=== PATIENT | male | born 1955 | race Caucasian/White ===

== ENCOUNTER 2022-02-03 00:40 | Day surgery (SDC) | payer MEDICARE, SELFPAY ==
[2022-01-29 12:15] VITALS: BMI 22.9
--- NOTE | 2022-02-02 11:02 | P.PNAN_ITS ---
Anes - Initial Pre Proc Eval Procedure: Operation Date: 02/03/22 12:15 Proposed Procedures p Screening Colonoscopy - Sheldon Mead MD Date/Time: 02/02/22 11:02 Surgeon: Sheldon Mead MD Pre Op Diagnosis: neoplasm screening Patient Data Age: 66 Gender: M Height: 1.78 m Weight: 72.5 kg Allergies Allergy/AdvReac Type Severity Reaction Status Date / Time DICLOFENAC SODIUM Allergy Severe FACIAL Uncoded 02/03/22 11:07 SWELLING Home Medications Medication Instructions Recorded Confirmed Type Adults Multivitamin 1 tab-cap PO DAILY 01/29/22 01/29/22 History aspirin [Adult Aspirin Regimen] 81 mg PO DAILY 01/29/22 01/29/22 History atorvastatin 40 mg PO DAILY 01/29/22 01/29/22 History carvedilol 6.25 mg PO DAILY 01/29/22 01/29/22 History clopidogrel 75 mg PO DAILY 01/29/22 01/29/22 History indomethacin 50 mg PO Q48H 01/29/22 01/29/22 History losartan 25 mg PO DAILY 01/29/22 01/29/22 History melatonin 10 mg PO HS 01/29/22 01/29/22 History nitroglycerin 0.4 mg SUBLINGUAL PRN 01/29/22 01/29/22 History tramadol 50 mg PO BID PRN 01/29/22 02/03/22 History Patient hx anesthesia problems: none Family hx anesthesia problems: none Results Review: All pre-operative results and documents have been reviewed as part of the pre-operative evaluation. [facility] Past Medical History Medical History (Updated 02/02/22 @ 11:02 by Kodi Orr DO) Anemia History of heart attack 2018 Hyperlipidemia Hypertension Family History Family History (Updated 06/21/18 @ 08:43 by DOCTOR UNKNOWN) Father Cerebrovascular accident Acute myocardial infarction Family history of heart disease in male family member before age 55 Mother Carcinoma of colon Family history of heart disease in male family member before age 55 Acute myocardial infarction Grandparent Cerebrovascular accident Family history of heart disease in male family member before age 55 Sibling Malignant neoplasm of prostate Other Family history of coronary artery disease Social History Social History Smoking status: Never smoker Second hand tobacco smoke exposure: No Alcohol intake: current Drinks per week: 2 Alcohol use details: DRINKS Substance use: never Substance use type: does not use Living arrangements: with family Spiritual care concerns: No Anes - Eval Final PreProcedure Day of Procedure 02/02/22 11:02 Patient weight: normal Heart: regular rate and rhythm Lungs: clear to auscultation and normal air movement Airway: Mallampati scale class II Neurological: alert and oriented Last oral intake: >/= 8 hours ASA classification: III Emergent: no Anesthetic plan: proceed Anesthesia type and monitoring: general GIVS and standard monitoring Results Review: All pre-operative results and documents have been reviewed as part of the pre-operative evaluation. Informed Consent: The patient's anesthetic plan and its attendant risks and benefits were discussed with the patient/family/POA. Questions were solicited and answers provided to the satisfaction of the patient/family/POA.
[2022-02-03 11:09] VITALS: BP 101/74; PULSE 91; RESP 16; TEMP 36.3; O2SAT 100
[2022-02-03] MEDS: LACTATED RINGERS 1,000 ML 150 ML IV CONT (11:13)
--- NOTE | 2022-02-03 11:26 | PM.HPGS ---
History of Present Illness History of Present Illness Consent: Risks, benefits, and alternatives have been discussed and questions answered. Patient agrees to proceed with procedure. Chief complaint: neoplasm screening Narrative: Addison Nina is a 66 year old male Here for colon cancer screening. This is his 1st colonoscopy. Review of Systems Review of Systems: All systems reviewed & are unremarkable except as noted in HPI and below PMFSH Past Medical History Medical History Anemia History of heart attack 2018 Hyperlipidemia Hypertension Family History Family History Father Cerebrovascular accident Acute myocardial infarction Family history of heart disease in male family member before age 55 Mother Carcinoma of colon Family history of heart disease in male family member before age 55 Acute myocardial infarction Grandparent Cerebrovascular accident Family history of heart disease in male family member before age 55 Sibling Malignant neoplasm of prostate Other Family history of coronary artery disease Social History Social History Smoking status: Never smoker Second hand tobacco smoke exposure: No Alcohol intake: current Drinks per week: 2 Alcohol use details: DRINKS Substance use: never Substance use type: does not use Living arrangements: with family Spiritual care concerns: No Meds Home Medications and Allergies Home Medications Medication Instructions Recorded Confirmed Type Adults Multivitamin 1 tab-cap PO DAILY 01/29/22 01/29/22 History aspirin [Adult Aspirin Regimen] 81 mg PO DAILY 01/29/22 01/29/22 History atorvastatin 40 mg PO DAILY 01/29/22 01/29/22 History carvedilol 6.25 mg PO DAILY 01/29/22 01/29/22 History clopidogrel 75 mg PO DAILY 01/29/22 01/29/22 History indomethacin 50 mg PO Q48H 01/29/22 01/29/22 History losartan 25 mg PO DAILY 01/29/22 01/29/22 History melatonin 10 mg PO HS 01/29/22 01/29/22 History nitroglycerin 0.4 mg SUBLINGUAL PRN 01/29/22 01/29/22 History tramadol 50 mg PO BID PRN 01/29/22 02/03/22 History Allergies Allergy/AdvReac Type Severity Reaction Status Date / Time DICLOFENAC SODIUM Allergy Severe FACIAL Uncoded 02/03/22 11:07 SWELLING Vital Signs Vital Signs - 24 hr 02/03/22 11:09 Temperature 36.3 C L Pulse Rate 91 Respiratory Rate 16 Blood Pressure 101/74 Pulse Oximetry 100 Exam Resp: Auscultation: clear to auscultation bilaterally Cardio: Rate: regular rate Rhythm: regular rhythm GI: GI Palp: Yes Soft to palpation and No Tenderness to palpation present (GI) Assessment and Plan Assessment and plan (1) Colon cancer screening: Code(s): Z12.11 - Encounter for screening for malignant neoplasm of colon Status: Acute Assessment and Plan: Colonoscopy with possible biopsy or polypectomy or cautery or injection of substances.1947
[2022-02-03 11:49] VITALS: BP 87/57; PULSE 66; RESP 15; O2SAT 100
[2022-02-03 11:59] VITALS: BP 94/64; PULSE 67; RESP 20; O2SAT 100
[2022-02-03 12:09] VITALS: BP 97/61; PULSE 65; RESP 14; O2SAT 100
== END 2022-02-03 12:26 | disposition home or self-care (01) ==
PROVIDERS: PCP Physician Assistant; Visit Provider Internal Medicine Gastroenterology
PROC: 0DJD8ZZ Inspection of Lower Intestinal Tract, Via Natural or Artificial Opening Endoscopic (ICD-10-PCS; CPT 45378; principal; 2022-02-03 12:15)
DX: Z12.11 Encounter for screening for malignant neoplasm of colon (principal); K57.30 Diverticulosis of large intestine without perforation or abscess without bleeding; K64.8 Other hemorrhoids; I10 Essential (primary) hypertension; I25.2 Old myocardial infarction; E78.5 Hyperlipidemia, unspecified
CPT/HCPCS: G0105; J2704; J7120

== ENCOUNTER 2022-02-16 12:34 | Outpatient (CLI) | payer MEDICARE, SELFPAY ==
--- NOTE | ~2022-02-16 | US_ITS ---
EXAMINATION: US renal BI DATE: 02/16/2022 13:07 INDICATION: Stage III chronic kidney disease TECHNIQUE: Multiple ultrasound grayscale images of the kidneys were obtained. COMPARISON: None. FINDINGS: The right kidney measures 9.4 x 5.1 x 5.0 cm. The left kidney measures 8.5 x 4.0 x 4.5 cm. There is c ortical thinning at both kidneys with normal echogenicity. There is no hydronephrosis in either kidne y. No stones identified. The bladder is normal. Mild prostatomegaly measuring 4.1 x 3.1 cm with cent ral echogenic calcification. IMPRESSION: 1. Diffuse mild bilateral renal cortical atrophy. No hydronephrosis. 2. Prostatomegaly. Reviewed, dictated and finalized at location B.
== END 2022-02-16 12:35 | disposition home or self-care (01) ==
PROVIDERS: PCP Physician Assistant; Visit Provider Internal Medicine Nephrology
DX: N18.31 Chronic kidney disease, stage 3a (principal); N40.0 Benign prostatic hyperplasia without lower urinary tract symptoms
CPT/HCPCS: 76775

== ENCOUNTER 2023-03-06 12:05 | Inpatient (IN) | payer MEDICARE, SELFPAY ==
[2023-03-06] VITALS (25 sets, daily range): BP systolic 90–105; BP diastolic 57–78; PULSE 67–88; RESP 12–20; TEMP 35.6–36.6; O2SAT 93–100; BMI 23.1
--- NOTE | ~2023-03-06 | CT_ITS ---
EXAMINATION: CT brain wo con DATE: 03/06/2023 20:45 INDICATION: confusion . TECHNIQUE: Computed tomography (CT) of the head was performed without intravenous contrast. The mA wa s adjusted according to patient size. Iterative reconstruction technique was employed. The dose-lengt h product was 681.00 mGy-cm. COMPARISON: 06/04/2018, report only, images could not be retrieved from the logger all round. FINDINGS: No acute intracranial hemorrhage or extra-axial fluid collection. No hydrocephalus, mass, or herniation. No acute ischemic infarct. Unremarkable dural venous sinus attenuation. No acute osseous abnormality. Near complete opacification of the right frontal and right anterior and middle ethmoid air cells, wit h air-fluid levels. Complete opacification of the right maxillary sinus with surrounding sclerosis. T he remaining aerated spaces are clear. Mild atrophy and chronic white matter change. Atherosclerotic intracranial calcification. Left lens r eplacement. IMPRESSION: No acute intracranial process. Acute on chronic sinusitis. Reviewed, dictated and finalized at location K.
--- NOTE | ~2023-03-06 | US_ITS ---
Renal-Bladder ultrasound Clinical History: Acute kidney insufficiency Technique: Real-time sonographic imaging of the kidneys and urinary bladder was performed. Findings: The right kidney measures 10.1 cm in length and the left kidney measures 9.2 cm. There is n o hydronephrosis or renal calculus identified. Renal cortex is hyperechoic and thinned. No renal mass lesion is identified. The urinary bladder is partially distended at the time of this exam. No intraluminal echoes are ident ified. No abnormal wall thickening is seen. Impression: Findings consistent with chronic medical renal disease. No hydronephrosis. Reviewed, dictated and finalized at location . Impression: Findings consistent with chronic medical renal disease. No hydronephrosis.
--- NOTE | ~2023-03-06 | US_ITS ---
EXAMINATION: US arterial ankle brachial ind DATE: 03/11/2023 19:06 INDICATION: Decreased pulses TECHNIQUE: Segmental pressures and plethysmographic and Doppler waveforms of the brachial and lower e xtremity arteries were obtained. COMPARISON: None. FINDINGS: Right and left brachial artery pressures of 87 mm Hg and 83 mm Hg, respectively, are concordant (norm al difference <= 30 mmHg). The right ankle-brachial index (ELLEN) is unable to be obtained due to inability to occlude the vessels at the right ankle (normal >= 0.9-1.0). The right great toe-brachial index (TBI) is 0.98 (normal >= 0.65). Arterial Doppler waveforms are biphasic with brisk systolic upstrokes at both right posterior tibial and dorsalis pedis arteries. The left ELLEN is 1.39. The left TBI is 1.48. Arterial Doppler waveforms are biphasic with brisk systol ic upstrokes at both left posterior tibial and dorsalis pedis arteries. IMPRESSION: 1. No significant arterial occlusive disease with normal bilateral ABIs and TBIs Reviewed, dictated and finalized at location A. IMPRESSION: 1. No significant arterial occlusive disease with normal bilateral ABIs and TBI s
--- NOTE | ~2023-03-06 | XR_ITS ---
Portable chest x-ray Comparison: 03/06/2023 Clinical History: Line placement Findings: Right-sided central venous line is in satisfactory position. Lungs are clear. No consolida tion, effusion, or pneumothorax. Cardiomediastinal silhouette is stable. Stable chronic left-sided r ib fracture deformities. Impression: Right-sided central venous line in satisfactory position. Clear lungs. Reviewed, dictated and finalized at location . Impression: Right-sided central venous line in satisfactory position. Clear lungs.
--- NOTE | ~2023-03-06 | XR_ITS ---
EXAMINATION: XR chest 1V portable 03/06/2023 12:50 INDICATION: Weakness. Hypertension. PROCEDURE: AP portable chest COMPARISON: No prior studies for comparison. FINDINGS: The lungs are clear. The cardiomediastinal silhouette is within normal limits. There are no pleural effusions. There is no pneumothorax suspected. There are multiple healed left rib fractu res. There is an age-indeterminate left sixth rib fracture. IMPRESSION: 1: NO ACUTE CARDIOPULMONARY DISEASE. 2: Age-indeterminate left sixth rib fracture. Reviewed, dictated and finalized at location A.
--- NOTE | ~2023-03-06 | XR_ITS ---
Portable chest x-ray Comparison: 03/08/2023 Clinical History: CHF Findings: Right IJ line is unchanged. Lungs are clear, without focal consolidation or pleural effusi on. Cardiomediastinal silhouette is stable. Bones and soft tissues are unremarkable. Impression: Clear lungs. Stable support line. Reviewed, dictated and finalized at location . Impression: Clear lungs. Stable support line.
--- NOTE | 2023-03-06 12:35 | ECG_ITS ---
Measurements Intervals [place] Rate: 71 P: 34 ME: 218 QRS: -9 QRSD: 140 T: -17 QT: 404 QTc: 441 Interpretive Statements SINUS RHYTHM WITH FIRST DEGREE AV BLOCK ATRIAL PREMATURE COMPLEX INTRAVENTRICULAR CONDUCTION DELAY BORDERLINE T WAVE ABNORMALITY- INFERIOR LEADS BORDERLINE ECG NO PREVIOUS ECG AVAILABLE FOR COMPARISON Electronically Signed On 03-06-2023 13:44:17 CDT by Chris Beebe D.O.
--- NOTE | 2023-03-06 12:35 | ED.GENADULT ---
HPI - General Adult General Chief complaint: Unspecified Stated complaint: vomiting/dehydration Time Seen by Provider: 03/06/23 12:29 Source: patient, family and RN notes reviewed Mode of arrival: ambulatory Limitations: altered mental status History of Present Illness HPI narrative: This is a 67 year old male with history of gout, hyperlipidemia, hypertension, chronic kidney disease who presents for evaluation of dehydration. His is assisting with history because she states patient is confused. 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 His states that his asset management analyst has taken him off his gout medication and started Azathropine to prepare for an infusion. Over the past 2 weeks, patient has been in bed mostly due to pain. She reports patient is not eating or drinking much. She reports decrease urination and she thinks he is dehydrated. Last night he was having nausea and hiccups. Today she tried to get him to drink water today but he had episode of emesis so they came to ER. He reports having fever 102 f 2 days ago but it has resolved. He denies abdominal pain, chest pain, sob, cough. He reports mild sore throat. Related Data Home Medications Medication Instructions Recorded Confirmed Adults Multivitamin 1 tab-cap PO DAILY 01/29/22 03/06/23 aspirin 81 mg tablet,delayed 81 mg PO DAILY 01/29/22 03/06/23 release (Adult Aspirin Regimen) atorvastatin 40 mg tablet 40 mg PO DAILY 01/29/22 03/06/23 clopidogrel 75 mg tablet 75 mg PO DAILY 01/29/22 03/06/23 indomethacin 50 mg capsule 25 mg PO Q48H 01/29/22 03/06/23 nitroglycerin 0.4 mg sublingual 0.4 mg sublingual PRN PRN Chest 01/29/22 03/06/23 tablet Pain tramadol 50 mg tablet 50 mg PO BID PRN Pain 01/29/22 03/06/23 sodium bicarbonate 650 mg tablet 650 mg PO BID 11/30/22 03/06/23 carvedilol 6.25 mg tablet 6.25 mg PO Q12H 02/01/23 03/06/23 sacubitril 24 mg-valsartan 26 mg 1 tablet PO BID 02/01/23 03/06/23 tablet (Entresto) azathioprine 50 mg tablet 150 mg PO DAILY 03/06/23 03/06/23 febuxostat 40 mg tablet 40 mg PO DAILY 03/06/23 03/06/23 Allergies Allergy/AdvReac Type Severity Reaction Status Date / Time DICLOFENAC SODIUM Allergy Severe FACIAL Uncoded 03/06/23 12:30 SWELLING Review of Systems Constitutional: Constitutional: Reports fever(s) and Reports weakness ENT: Reports sore throat Cardiovascular: Cardiovascular: Denies syncope, Denies rapid heart rate, Denies irregular heart rhythm, Denies leg edema and Denies dyspnea Respiratory: Respiratory: Denies chest congestion, Denies hemoptysis, Denies excessive phlegm production and Denies dyspnea Gastrointestinal: Gastrointestinal: Denies abdominal pain, Denies hematochezia, Denies diarrhea, Reports nausea and Reports vomiting Genitourinary: Genitourinary: Denies hematuria, Denies dysuria, Denies penile discharge and Denies testicular pain Musculoskeletal: Musculoskeletal: Reports arthralgias, Reports joint swelling, Denies loss of height and Denies muscle weakness Neurologic: Denies syncope, Denies focal weakness and Denies weakness [facility] Past Medical History Medical History (Updated 03/06/23 @ 23:24 by Bella Shin MD) Anemia Chronic kidney disease, stage 3b Colon cancer screening Congestive heart failure Gout, unspecified History of heart attack 2018 no cardiac stents only treated with medication. Hyperlipidemia Hypertension Surgical History Surgical History (Updated 03/06/23 @ 20:23 by Zina Gamino NP) H/O arthroscopic knee surgery H/O cardiac catheterization H/O cataract extraction History of appendectomy History of bilateral knee replacement Family History Family History Father Cerebrovascular accident Acute myocardial infarction Family history of heart disease in male family member before age 55 Mother Carcinoma of colon Family history of heart disease in male family me
[2023-03-06] MEDS: SODIUM CHLORIDE 0.9% IV 1,000 ML 999 ML IV CONT ×2 (13:12→14:42)
[2023-03-06] MEDS: ONDANSETRON INJ 4 MG/2 ML VIAL IV PUSH (13:13)
[2023-03-06 13:14] LABS: Basophils Absolute Auto 0.1 K/mm3 (0.0-0.1); Basophils Percent Auto 0.6 % (0.2-1.2); Eosinophils Absolute Auto 0.2 K/mm3 (0-0.3); Eosinophils Percent Auto 1.8 % (0-4.4); Hematocrit 32.7 % (42.0-52.0); Hemoglobin 10.6 g/dL (14.0-18.0); Immature Granulocyte Absolute 0.06 K/mm3 (0.00-0.031); Immature Granulocyte Percent A 0.7 % (0-0.5); Lymphocytes Absolute Auto 0.26 K/mm3 (0.9-3.2); Mean Corpuscular HGB Conc 32.4 g/dl (32-36); Mean Corpuscular Volume 86.3 fl (80-100); Mean Platelet Volume 10.5 fl (7.4-10.4); Monocytes Absolute Auto 0.2 K/mm3 (0.1-0.6); Monocytes Percent Auto 2.3 % (2.6-8.5); Neutrophils Percent Auto 91.6 % (45.5-73.1); Platelet Count Result 133 k/mm3 (150-375); Red Blood Count 3.79 M/mm3 (4.6-6.20); Red Cell Distribution Width 15.9 % (11.5-14.5); White Blood Count 8.7 K/mm3 (4.5-10.0)
[2023-03-06 13:25] LABS: Lactic Acid Reflex 2.7 mmol/L (0.7-2.0)
[2023-03-06 13:26] LABS: INR 1.4; Prothrombin Time 17.7 Seconds (11.1-14.7)
[2023-03-06 13:35] LABS: Partial Thromboplastin Time 33.6 SECONDS (22.3-36.8)
[2023-03-06 13:55] LABS: Crenated RBC 2+ (NORMAL); Ovalocytes 1+ (NORMAL); Schistocytes None Seen (NORMAL)
[2023-03-06 14:14] LABS: Influenza A QL RT-PCR Negative (Negative); Influenza B QL RT-PCR Negative (Negative); SARS-CoV-2 RNA PCR Negative (Negative)
[2023-03-06 14:29] LABS: Alanine Aminotransferase 36 U/L (6-50); Alkaline Phosphatase 376 U/L (38-126); Anion Gap 24 mmol/L (8-16); Aspartate Amino Transferase 51 U/L (17-59); Bilirubin,Total 1.1 mg/dL (0.2-1.3); Calcium 8.9 mg/dL (8.4-10.2); Carbon Dioxide 14 mmol/L (22-30); Chloride 88 mmol/L (98-107); Estimated CRCL calculation 8 ml/min; Estimated Glomerular Filt Rate 7; Glucose 66 mg/dL (65-110); Lipase 47 U/L (23-300); Magnesium 3.1 mg/dL (1.6-2.3); Potassium 5.3 mmol/L (3.4-5.0); Sodium 126 mmol/L (137-145)
[2023-03-06 14:34] LABS: Blood Urea Nitrogen 173 mg/dL (9-20)
[2023-03-06 16:12] LABS: Reflex Lactic Acid Yes or No Add Lactic
[2023-03-06] MEDS: SODIUM CHLORIDE 0.9% IV 1,000 ML 125 ML IV CONT (16:30)
[2023-03-06 16:42] LABS: Appearance Urine Clear (Clear); Bacteria Urine None Seen /hpf; Bilirubin Urine Negative (Negative); Blood Urine Trace (Negative); Color Urine Yellow (Yellow); Glucose Urine UA Negative (Negative); Ketones Urine Negative (Negative); Leukocyte Esterase Ur 2+ LEU/UL (Negative); Nitrate Urine Negative (Negative); Non Pathogenic Casts 0-2; Protein Urine 1+ mg/dL (Negative); RBC Urine 0-2 /hpf (0-2); Specific Grav Ur 1.012 (1.001-1.035); Squamous Epithelial Cell Urine Occasional /hpf (Few); Urobilinogen Urine 0.2 mg/dL (<2.0); WBC Urine 21-50 /hpf
[2023-03-06 16:43] LABS: Add Urine Microscopic? YES
[2023-03-06 16:44] LABS: Total Protein Urine Random 45 mg/dL
[2023-03-06 16:45] LABS: Creatinine Urine 63.5 mg/dL
[2023-03-06 16:51] LABS: Potassium Urine Random 34.7 meq/L; Sodium Urine Random 38 meq/L
[2023-03-06 16:52] LABS: Lactic Acid 2.2 mmol/L (0.7-2.0); Uric Acid 14.3 mg/dL (3.5-8.5)
--- NOTE | 2023-03-06 16:59 | PM.IMHP ---
H&P: HPI History of Present Illness Date/Time: 03/06/23 16:59 Chief Complaint: Vomiting dehydration and confusion Narrative: this is a 67-year-old male patient who has a history of chronic kidney disease, hypertension, hyperlipidemia and gout. The patient follows with Dr. Cronin. The patient has severe gout to his hands and his feet. He recently had medications changed by Nephrology. The patient stated that he is supposed to get an injection. He recently started on azathioprine. This is To prepare him for his infusion. Over the last 2 weeks the patient has been and a lot of pain and he has had decreased oral intake. He has also had decreased urination and thinks that he might be dehydrated. He has been having nausea and hiccups. The patient tried to drink water today and had an episode of emesis so he came to the emergency room. He reports having a fever of 1 0 to approximately 2 days ago and then it resolved. He denies any chest pain or shortness of breath or any abdominal pain he has a mild sore throat. His H&H is 10.6 and 32.7. His platelets are 133. his sodium is 126. Potassium 5.3. Chloride 88. Anion gap 24. BUN 173 and creatinine 7.9. His GFR 7. Nephrology has been consulted. IV fluids have been started. The patient was given Zofran in the emergency room as well. His blood sugar was found to be in the 50s and the hypoglycemic protocol was initiated. Chest x-ray was read as no acute cardiopulmonary disease. Age indeterminate left 6 rib fracture. The patient is being admitted to inpatient status on the date of service of 03/06/2023. Review of Systems Review of Systems: All systems reviewed & are unremarkable except as noted in HPI and below Constitutional: Constitutional: Reports as per HPI and Reports no additional constitutional complaints Eyes: Eyes: Reports as per HPI and Reports no additional eye complaints ENT: Reports system reviewed and no additional complaints, except as documented and Reports Normal hearing present Cardiovascular: Cardiovascular: Reports no additional cardiovascular complaints Respiratory: Respiratory: Reports no additional respiratory complaints and Reports no additional respiratory complaints Gastrointestinal: Gastrointestinal: Reports as per HPI and Reports no additional gastrointestinal complaints Musculoskeletal: Musculoskeletal: Reports no additional musculoskeletal complaints Integumentary/Breasts: Skin/Breast: Reports system reviewed and no additional complaints, except as docu and Reports as per HPI Neurologic: Reports system reviewed and no additional complaints, except as documented, Reports as per HPI and Reports Normal hearing present Psychiatric: Psychiatric: Reports no additional psychiatric complaints and Reports as per HPI Endocrine: Endocrine: Reports no additional endocrine complaints Hematologic/Lymphatic: Hematologic/Lymphatic: Reports no additional hematologic/lymphatic complaints Allergic/Immunologic: Allergic/Immunologic: Reports no additional allergic/immunologic complaints [facility] Past Medical History Medical History (Updated 03/06/23 @ 20:32 by Zina Gamino NP) Anemia Chronic kidney disease, stage 3b Colon cancer screening Congestive heart failure Gout, unspecified History of heart attack 2017 no cardiac stents only treated with medication. Hyperlipidemia Hypertension Surgical History Surgical History (Updated 03/06/23 @ 20:23 by Zina Gamino NP) H/O arthroscopic knee surgery H/O cardiac catheterization H/O cataract extraction History of appendectomy History of bilateral knee replacement Family History Family History Father Cerebrovascular accident Acute myocardial infarction Family history of heart disease in male family member before age 55 Mother Carcinoma of colon Family history of heart disease in male family member before age 55 Acute myocardial infarcti
--- NOTE | 2023-03-06 18:19 | ADMGEN ---
This patient, Addison Nina, was admitted to IMU Room 231-01 at 1812. Patient/family oriented to hospital policies and general routines including ID bracelet, bed and alarms, visiting hours, pain management, procedures, bathroom and other care routines, personal items, smoking policy, room service/diet, and visiting hours. Information on how to activate the Rapid Response Team has been discussed. Patient/Family are encouraged to report perceived risks to care and to ask questions if they do not understand what they are told or what they should do.
[2023-03-06 20:00] LABS: Glucose Point of Care 59 mg/dl (65-105)
[2023-03-06 20:34] LABS: Glucose Point of Care 76 mg/dl (65-105)
[2023-03-06] MEDS: traMADol HCL (*CRX) 50 MG TABLET PO (21:06)
--- NOTE | 2023-03-06 21:19 | PC.NURSE ---
Patient's states that she has some concerns about patient's altered mental status. At time of assessment, patient seems very alert & oriented with some occasional forgetfulness to time. This RN explained to that this is most likely due to patient's elevated BUN and Creatinine. Patient's would like to talk to Dr. Cronin when he rounds in the morning on 03/07/2023. states that she will arrive early to be here when Dr. Cronin rounds. Will continue to monitor.
[2023-03-06 22:21] LABS: Anion Gap 20 mmol/L (8-16); Calcium 8.5 mg/dL (8.4-10.2); Carbon Dioxide 14 mmol/L (22-30); Chloride 93 mmol/L (98-107); Estimated CRCL calculation 9 ml/min; Estimated Glomerular Filt Rate 7; Glucose 75 mg/dL (65-110); Potassium 5.4 mmol/L (3.4-5.0); Sodium 127 mmol/L (137-145)
[2023-03-06 22:22] LABS: Blood Urea Nitrogen 165 mg/dL (9-20)
[2023-03-07] VITALS (16 sets, daily range): BP systolic 90–106; BP diastolic 46–64; PULSE 70–95; RESP 16–20; TEMP 36.2–36.9; O2SAT 97–100
[2023-03-07] MEDS: SODIUM ZIRCONIUM CYCLOSILICATE 10 GM POWD.PACK PO (00:01)
[2023-03-07] MEDS: SODIUM CHLORIDE 0.9% IV 1,000 ML 100 ML IV CONT ×2 (00:01→11:03)
[2023-03-07] MEDS: CALCIUM GLUC 1,000 MG/NS 50 ML 1,000 MG/50 ML BAG 100 MG IVPB (00:01)
[2023-03-07 04:34] LABS: Basophils Percent Auto 0.2 % (0.2-1.2); Eosinophils Absolute Auto 0.1 K/mm3 (0-0.3); Eosinophils Percent Auto 0.9 % (0-4.4); Hematocrit 30.1 % (42.0-52.0); Hemoglobin 9.7 g/dL (14.0-18.0); Immature Granulocyte Absolute 0.06 K/mm3 (0.00-0.031); Immature Granulocyte Percent A 0.7 % (0-0.5); Lymphocytes Absolute Auto 0.31 K/mm3 (0.9-3.2); Lymphocytes Percent Auto 3.6 % (18.3-44.2); Mean Corpuscular HGB Conc 32.2 g/dl (32-36); Mean Corpuscular Hemoglobin 27.7 pg (26-34); Mean Platelet Volume 10.7 fl (7.4-10.4); Monocytes Absolute Auto 0.2 K/mm3 (0.1-0.6); Monocytes Percent Auto 2.2 % (2.6-8.5); Neutrophils Percent Auto 92.4 % (45.5-73.1); Platelet Count Result 139 k/mm3 (150-375); White Blood Count 8.6 K/mm3 (4.5-10.0)
[2023-03-07 04:44] LABS: Lactic Acid Reflex 1.7 mmol/L (0.7-2.0)
[2023-03-07 05:14] LABS: Alanine Aminotransferase 33 U/L (6-50); Anion Gap 22 mmol/L (8-16); Aspartate Amino Transferase 46 U/L (17-59); Calcium 8.8 mg/dL (8.4-10.2); Carbon Dioxide 13 mmol/L (22-30); Chloride 93 mmol/L (98-107); Estimated CRCL calculation 9 ml/min; Estimated Glomerular Filt Rate 7; Glucose 78 mg/dL (65-110); Potassium 5.4 mmol/L (3.4-5.0); Sodium 128 mmol/L (137-145)
[2023-03-07 05:15] LABS: Albumin Level 2.7 g/dL (3.5-5.1); Alkaline Phosphatase 385 U/L (38-126)
[2023-03-07 05:16] LABS: Blood Urea Nitrogen 165 mg/dL (9-20)
[2023-03-07 08:12] LABS: Glucose Point of Care 95 mg/dl (65-105)
[2023-03-07] MEDS: CLOPIDOGREL BISULFATE 75 MG TABLET PO (08:34)
[2023-03-07] MEDS: SODIUM BICARBONATE TAB 650 MG TABLET PO (08:34)
[2023-03-07] MEDS: azaTHIOprine 50 MG TABLET 150 MG PO (08:34)
[2023-03-07] MEDS: ASPIRIN 81 MG ENTERIC TABLET PO (08:34)
[2023-03-07] MEDS: ATORVASTATIN 40 MG TABLET PO (08:34)
--- NOTE | 2023-03-07 10:30 | PC.NURSE ---
Bladder scan shows 17 ml in bladder.
--- NOTE | 2023-03-07 10:35 | P.CONNP_ITS ---
Assessment and Plan Assessment and plan (1) LAURI (acute kidney injury): Code(s): N17.9 - Acute kidney failure, unspecified Status: Acute Assessment and Plan: * etiology is not clear * related to recent medication changes versus uric acid?? * try of IVFs has not made much improvement in renal function * given the severity of his renal dysfunction along with his hyperkalemia, metabolic acidosis and possible uremic symptoms, I am worried that he may require TELEMETRY TECHNICIAN/hemodialysis * furthermore, given the unclear nature of his LAURI/ARF, may need to consider a renal biopsy as well * will hold his plavix and ASA * continue gentle IVFs but decrease rate * urine electrolytes noted; check renal ultrasound * follow-up on labs tomorrow (2) Chronic kidney disease, stage 3b: Code(s): N18.32 - Chronic kidney disease, stage 3b Status: Chronic Assessment and Plan: * creatinine running ~ 2.0 - 2.4mg/dl since earlier this year * felt to be secondary to hypertensive nephrosclerosis based on outpatient evaluation but unclear if gout/hyperuricemia playing a role (3) Hyperkalemia: Code(s): E87.5 - Hyperkalemia Status: Acute Assessment and Plan: * due to LAURI along with Entresto use * s/p medical management * follow trend (4) Hypertension: Code(s): I10 - Essential (primary) hypertension Status: Acute Assessment and Plan: * BP on the soft side * holding BP medications including Entresto * follow trend of hemodynamics (5) Congestive heart failure: Code(s): I50.9 - Heart failure, unspecified Status: Acute Assessment and Plan: * unclear of specifics (no Echo here) * however, on carvedilol and Entresto as an outpatient * follow volume status closely in the context of IVFs and LAURI/ARF (6) Gout, unspecified: Code(s): M10.9 - Gout, unspecified Status: Chronic Assessment and Plan: * quite severe * had been on uloric and allopurinol in the past with limited effectiveness * planning infusion of kyrstexxa (azathioprine pretreatment started) * unclear if this can be given inpatient and more importantly, in the context of LAURI/ARF (7) Anemia: Code(s): D64.9 - Anemia, unspecified Status: Acute Assessment and Plan: * due to LAURI, CKD, and acute illness * follow trend of H/H * may need Epogen Long extensive discussion ( greater than 25 min) with the patient as well as at bedside regarding his acute kidney injury/ acute renal failure on top of his baseline kidney disease, hyperkalemia, metabolic acidosis, and my concern for symptoms that may be possibly related to uremia. Unfortunately, his kidney function is not improved with supportive therapy and if it does not do so in the next 24 hr, the next step may be renal replacement therapy/dialysis which they both voiced understanding to. I also discussed with him that given the unclear nature of his acute kidney injury, renal biopsy was consideration if his renal function fails to improve with supportive therapy. I will continue to follow the patient with you while he remains hospitalized and make further recommendations during his hospital course. Thank you for allowing me to participate in care of this patient. History of Present Illness Reason for Consult Consult date: 03/07/23 Reason for consult: acute renal failure (on chronic kidney disease) Chief Complaint Chief complaint: acute on chronic renal failure,dehydration,hyponat History of Present Illness Narrative: This 67-year-old
--- NOTE | 2023-03-07 10:35 | PM.CNNEP ---
Assessment and Plan Assessment and plan (1) LAURI (acute kidney injury): Code(s): N17.9 - Acute kidney failure, unspecified Status: Acute Assessment and Plan: etiology is not clear related to recent medication changes versus uric acid?? try of IVFs has not made much improvement in renal function given the severity of his renal dysfunction along with his hyperkalemia, metabolic acidosis and possible uremic symptoms, I am worried that he may require RECONDITIONING ASSOCIATE/hemodialysis furthermore, given the unclear nature of his LAURI/ARF, may need to consider a renal biopsy as well will hold his plavix and ASA continue gentle IVFs but decrease rate urine electrolytes noted; check renal ultrasound follow-up on labs tomorrow (2) Chronic kidney disease, stage 3b: Code(s): N18.32 - Chronic kidney disease, stage 3b Status: Chronic Assessment and Plan: creatinine running ~ 2.0 - 2.4mg/dl since earlier this year felt to be secondary to hypertensive nephrosclerosis based on outpatient evaluation but unclear if gout/hyperuricemia playing a role (3) Hyperkalemia: Code(s): E87.5 - Hyperkalemia Status: Acute Assessment and Plan: due to LAURI along with Entresto use s/p medical management follow trend (4) Hypertension: Code(s): I10 - Essential (primary) hypertension Status: Acute Assessment and Plan: BP on the soft side holding BP medications including Entresto follow trend of hemodynamics (5) Congestive heart failure: Code(s): I50.9 - Heart failure, unspecified Status: Acute Assessment and Plan: unclear of specifics (no Echo here) however, on carvedilol and Entresto as an outpatient follow volume status closely in the context of IVFs and LAURI/ARF (6) Gout, unspecified: Code(s): M10.9 - Gout, unspecified Status: Chronic Assessment and Plan: quite severe had been on uloric and allopurinol in the past with limited effectiveness planning infusion of kyrstexxa (azathioprine pretreatment started) unclear if this can be given inpatient and more importantly, in the context of LAURI/ARF (7) Anemia: Code(s): D64.9 - Anemia, unspecified Status: Acute Assessment and Plan: due to LAURI, CKD, and acute illness follow trend of H/H may need Epogen Long extensive discussion ( greater than 25 min) with the patient as well as at bedside regarding his acute kidney injury/ acute renal failure on top of his baseline kidney disease, hyperkalemia, metabolic acidosis, and my concern for symptoms that may be possibly related to uremia. Unfortunately, his kidney function is not improved with supportive therapy and if it does not do so in the next 24 hr, the next step may be renal replacement therapy/dialysis which they both voiced understanding to. I also discussed with him that given the unclear nature of his acute kidney injury, renal biopsy was consideration if his renal function fails to improve with supportive therapy. I will continue to follow the patient with you while he remains hospitalized and make further recommendations during his hospital course. Thank you for allowing me to participate in care of this patient. History of Present Illness Reason for Consult Consult date: 03/07/23 Reason for consult: acute renal failure (on chronic kidney disease) Chief Complaint Chief complaint: acute on chronic renal failure,dehydration,hyponat History of Present Illness Narrative: This 67-year-old male with a past medical history as outlined below who presented to [facility] Emergency room for generalized pain and poor appetite. The the patient states that over last two weeks he has had significant pain issues secondary to his gout in association with poor oral intake. He has also noticed decreased urination and thinks that he may be dehydrated. He also reports increasing nausea and persistent hiccups.
[2023-03-07 12:16] LABS: Glucose Point of Care 98 mg/dl (65-105)
[2023-03-07] MEDS: SODIUM BICARBONATE 8.4% 75 MEQ in SODIUM CHLORIDE 0.45% 1,000 ML 50 MEQ IV CONT (13:00)
--- NOTE | 2023-03-07 15:09 | PM.IMPN ---
Progress Note: A&P Assessment and Plan (1) Acute dehydration: Code(s): E86.0 - Dehydration Status: Acute (2) Hyperuricemia: Code(s): E79.0 - Hyperuricemia without signs of inflammatory arthritis and tophaceous disease Status: Acute (3) Acute on chronic renal failure: Code(s): N17.9 - Acute kidney failure, unspecified; N18.9 - Chronic kidney disease, unspecified Status: Acute (4) Hyperkalemia: Code(s): E87.5 - Hyperkalemia Status: Acute Plan # acute kidney injury on CKD3b # electrolyte imbalances -creatinine 7.9, acute injury on CKD3B -nephrology consult: If no improvement of creatinine may need dialysis. follows Dr. Cronin -sodium 128: likely from poor PO intake -potassium 5.4, likely secondary to renal injury -hypoglycemia secondary to poor p.o. intake, glucose 50, treated with hypoglycemia protocol -hyperuricemia: Uric acid 14.3 -nephrology ordered hepatitis panel in anticipation for possible dialysis # anorexia # severe protein calorie malnutrition -patient has no interest for p.o. intake. He denies any nausea, change in taste -will encourage ensure -electrolyte imbalances may be secondary to poor p.o. intake # acute metabolic encephalopathy -patient's confusion may be secondary to hyponatremia, sodium 128, continue to monitor -CT head negative for acute finding #chronic conditions -gout with tophi: Continue nephrology management, on azathioprine -history [place] 2018, HLD: statin, hold aspirin and plavix for possible procedure HD cath -anemia of CKD: hemoglobin 9.7 -heart failure reduced ejection fraction: Holding Entresto for renal injury and hyperkalemia, Coreg for hypotension Diet: renal diet DVT prophylaxis: SCDs Code status: Full code Disposition: Likely home greater than 2 days, may need dialysis Social: updated bedside Subjective Date/time seen: 03/07/23 15:09 Interval history: Patient seen and examined. Patient was admitted yesterday with poor p.o. intake and abnormal labs. Patient has been following Dr. Cronin for management of his gout. Patient has significant tophi in his hands and feet, complications of gout. He has been unable to drink water and had episode of emesis. He currently denies any pain, nausea, change in taste, any symptoms at all. He states he just has no interest in p.o. intake. bedside. Continue correcting electrolytes potassium 5.4, sodium 126 to 128, glucose on presentation 50. He recently started azathioprine and will infusion for his gout management. notes the patient is altered. Will continue monitoring patient, downgrade from IMU. Review of Systems Review of Systems: 10 point ROS complete, negative other than what is specified in HPI. Exam Narrative: - GENERAL: Pleasant male with no acute distress. - EYES: EOMI. Anicteric. - HENT: Moist mucous membranes. - LUNGS: Clear to auscultation bilaterally, no wheezing, rhonchi, or rales. - CARDIOVASCULAR: Regular rate and rhythm. - ABDOMEN: Soft, non-tender and non-distended. No palpable masses. - EXTREMITIES: No edema. Peripheral pulses 2+. Non-tender. - NEUROLOGIC: No focal neurological deficits. CN II-XII grossly intact. - PSYCHIATRIC: Awake, Alert and oriented x 3. Appropriate mood and affect. - SKIN: No rashes or lesions. Warm. - LYMPH: No cervical lymphadenopathy. Objective Data Vital Signs Vital Signs: Vital Signs - 24 hr 03/06/23 15:22 03/06/23 15:22 03/06/23 15:46 Temperature Pulse Rate 70 70 72 Respiratory Rate 18 12 Blood Pressure 99/67 L 97/78 L Pulse Oximetry 99 99 Oxygen Delivery 03/06/23 15:47 03/06/23 16:01 03/06/23 16:30 Temperature Pulse Rate 71 70 69 Respiratory Rate 12 18 13 Blood Pressure 98/63 L Pulse Oximetry 100 100 100 Oxygen Delivery 03/06/23 16:46 03/06/23 17:00 03/06/23 17:01 Temperature Pulse Rate 70 71 70 Respiratory Rate 18 15 19 Blood Pressure 100/62 94/63 L Pulse Oxime
[2023-03-07 16:49] LABS: Glucose Point of Care 100 mg/dl (65-105)
[2023-03-07] MEDS: SODIUM BICARBONATE TAB 650 MG TABLET 1300 MG PO (16:57)
[2023-03-07 22:55] LABS: Glucose Point of Care 79 mg/dl (65-105)
[2023-03-08] VITALS (20 sets, daily range): BP systolic 92–118; BP diastolic 47–99; PULSE 77–102; RESP 16–20; TEMP 36–36.9; O2SAT 95–100
[2023-03-08 05:13] LABS: Hematocrit 29.4 % (42.0-52.0); Hemoglobin 9.6 g/dL (14.0-18.0); Mean Corpuscular HGB Conc 32.7 g/dl (32-36); Mean Corpuscular Hemoglobin 28.3 pg (26-34); Mean Corpuscular Volume 86.7 fl (80-100); Mean Platelet Volume 11.5 fl (7.4-10.4); Platelet Count Result 143 k/mm3 (150-375); Red Blood Count 3.39 M/mm3 (4.6-6.20); Red Cell Distribution Width 16.3 % (11.5-14.5); White Blood Count 17.4 K/mm3 (4.5-10.0)
[2023-03-08 05:29] LABS: Alanine Aminotransferase 30 U/L (6-50); Albumin Level 2.5 g/dL (3.5-5.1); Alkaline Phosphatase 333 U/L (38-126); Anion Gap 20 mmol/L (8-16); Aspartate Amino Transferase 42 U/L (17-59); Calcium 8.4 mg/dL (8.4-10.2); Carbon Dioxide 14 mmol/L (22-30); Chloride 94 mmol/L (98-107); Estimated CRCL calculation 9 ml/min; Estimated Glomerular Filt Rate 6; Glucose 78 mg/dL (65-110); Magnesium 2.9 mg/dL (1.6-2.3); Phosphorus 8.8 mg/dL (2.5-4.5); Potassium 5.4 mmol/L (3.4-5.0); Sodium 128 mmol/L (137-145)
[2023-03-08 05:54] LABS: Blood Urea Nitrogen 174 mg/dL (9-20)
[2023-03-08 06:05] LABS: Hepatitis B Surface Antigen Negative (Negative)
[2023-03-08 06:10] LABS: HAV RESULT Negative (Negative); Hepatitis B Core IgM Result Negative (Negative)
[2023-03-08 06:22] LABS: Hepatitis B Surface Anti Res Negative; Hepatitis C Virus Antibody Negative (Negative)
--- NOTE | 2023-03-08 06:59 | PC.NURSE ---
RN called to update on plans for dialysis catheter today.
[2023-03-08] MEDS: SODIUM BICARBONATE TAB 650 MG TABLET 1300 MG PO (09:00)
[2023-03-08] MEDS: ATORVASTATIN 40 MG TABLET PO (09:00)
--- NOTE | 2023-03-08 09:06 | P.CDI_ITS ---
CDI Query Clarification Request Documented history of CHF. CHF noted in the assessment and plan. Entresto listed as a home medication Please specify type and acuity of heart failure if known. * Acute * Chronic * Acute on Chronic * Unknown * Systolic * Diastolic * Combined Systolic and Diastolic * Unknown <Alexia Molina RN - Last Filed: 03/08/23 09:11> Clarified Diagnosis Clarified Diagnosis: Unknown type of H, no echo available <Stefanie Arrieta MD - Last Filed: 03/10/23 08:25>
--- NOTE | 2023-03-08 09:06 | WPDCDIQUERY2 ---
CDI Query Clarification Request Documented history of CHF. CHF noted in the assessment and plan. Entresto listed as a home medication Please specify type and acuity of heart failure if known. Acute Chronic Acute on Chronic Unknown Systolic Diastolic Combined Systolic and Diastolic Unknown <Alexia Molina RN - Last Filed: 03/08/23 09:11> Clarified Diagnosis Clarified Diagnosis: Unknown type of H, no echo available <Stefanie Arrieta MD - Last Filed: 03/10/23 08:25>
[2023-03-08] MEDS: SODIUM BICARBONATE 8.4% 75 MEQ in SODIUM CHLORIDE 0.45% 1,000 ML 50 MEQ IV CONT (09:52)
--- NOTE | 2023-03-08 09:55 | PM.CNGS ---
Assessment and Plan Assessment and plan (1) Acute on chronic renal failure: Code(s): N17.9 - Acute kidney failure, unspecified; N18.9 - Chronic kidney disease, unspecified Status: Acute Assessment and Plan: Patient presented with acute kidney injury on chronic renal disease. His renal function has continued to worsen despite medical management. Nephrology now requesting placement of a temporary dialysis catheter. Description of the procedure, risks, benefits, and alternatives were discussed with the patient and his in detail. He agrees to proceed. Will obtain consent. Dr. Rangel will plan to do this at the bedside today. (2) Hyperkalemia: Code(s): E87.5 - Hyperkalemia Status: Acute (3) Congestive heart failure: Code(s): I50.9 - Heart failure, unspecified Status: Acute (4) Gout, unspecified: Code(s): M10.9 - Gout, unspecified Status: Chronic (5) Anemia: Code(s): D64.9 - Anemia, unspecified Status: Acute Plan I have discussed the patient's case and plan of care with Dr. Rangel. Thank you for allowing us to see the patient in consultation. History of Present Illness Consult details Consult date: 03/08/23 Reason for consult: other (Temporary dialysis catheter placement) Requesting physician: Nancy Cabezas MD Narrative: This is a 67-year-old man with chronic kidney disease, coronary artery disease, CHF, and hypertension, who was admitted two days ago for acute on chronic renal failure with hyperkalemia. He is being followed by Nephrology. They have been treating him medically without any improvement in his renal function. He is oliguric and having symptoms of uremia. Renal function worse on labs today with his BUN up to 174 and creatinine 8.4. Nephrology is consulting our service for placement of a temporary dialysis catheter to initiate hemodialysis. Patient has never had dialysis in the past. He does currently take Plavix and received one dose yesterday. Per his , he did not have any Plavix the 4 days preceding his admission. Review of Systems Review of Systems: All systems reviewed & are unremarkable except as noted in HPI and below Constitutional: Constitutional: Reports no additional constitutional complaints, Reports weakness and Reports other (some confusion) Eyes: Eyes: Reports no additional eye complaints ENT: Reports system reviewed and no additional complaints, except as documented Cardiovascular: Cardiovascular: Reports no additional cardiovascular complaints, Denies chest pain, Denies chest pain at rest and Denies dyspnea Respiratory: Respiratory: Reports no additional respiratory complaints and Denies cough Gastrointestinal: Gastrointestinal: Reports no additional gastrointestinal complaints, Denies abdominal pain (no pain but diffuse abdominal soreness), Denies bloating, Denies diarrhea and Reports nausea Genitourinary: Genitourinary: Reports no additional male genitourinary complaints and Reports other (oliguria) Musculoskeletal: Musculoskeletal: Reports no additional musculoskeletal complaints and Reports other (pain and swelling in bilateral hands/feet d/t gout) Integumentary/Breasts: Skin/Breast: Reports system reviewed and no additional complaints, except as docu Neurologic: Reports system reviewed and no additional complaints, except as documented [facility] Past Medical History Medical History Anemia Chronic kidney disease, stage 3b Colon cancer screening Congestive heart failure Gout, unspecified History of heart attack 2018 no cardiac stents only treated with medication. Hyperlipidemia Hypertension Surgical History Surgical History H/O arthroscopic knee surgery H/O cardiac catheterization H/O cataract extraction History of appendectomy History of bilateral knee replacement Family History Family History (R
--- NOTE | 2023-03-08 12:38 | P.OP_ITS ---
Procedure Note - Detailed Date of Procedure 03/08/23 Pre-op Diagnosis acute on chronic renal failure,dehydration,hyponat Post-op Diagnosis Same Procedure Performed Right IJ Sherwin dialysis catheter placement using ultrasound guidance Surgeon Stephon Rangel, DO Anesthesia Local (1% Lidocaine) Indications Worsening acute on chronic renal failure. Findings SonoSite ultrasound was used to identify the right internal jugular vein. This was visualized as a compressible vessel just lateral to the pulsatile carotid artery. The 18 gauge introducer needle was advanced under ultrasound guidance. Once within the lumen of the internal jugular vein, dark nonpulsatile blood was aspirated. The guidewire was advanced through the needle without resistance. The triple-lumen 20 cm dialysis catheter was then inserted. Chest x-ray is pending to confirm placement. Description of Procedure Procedure, risks, benefits, and alternatives were discussed with the patient. Written consent was obtained and placed in chart prior to procedure. Patient was placed supine in hospital bed and placed in slight Trendelenburg position. Time-out was done to confirm patient and procedure. The right neck and chest area was prepped and draped in sterile fashion using chlorhexidine prep. SonoSite ultrasound was used to identify the right internal jugular vein. 1% lidocaine was infiltrated directly over this area. An 18 gauge introducer needle was advanced under ultrasound guidance directly into the right internal jugular vein. Dark nonpulsatile blood was aspirated. A 0.035 in guidewire was then advanced through the needle. The guidewire advanced smoothly. The needle was then withdrawn leaving the guidewire in place. A small luis incision was made at the insertion site using an 11 blade scalpel. The blue dilators were then advanced over the guidewire to dilate the vessel. The [employer] [place] triple lumen 16 cm dialysis catheter was then advanced over the guidewire until it was in place. The guidewire was removed. All 3 lumens were then aspirated and flushed with sterile saline. All 3 lumens function with ease. Caps were placed over the lumens. Glue was placed at the insertion site and the catheter was secured in place using 3 0 nylon simple interrupted sutures. A Tegaderm dressing was then applied over top. The patient was then sat up in bed and chest x-ray was ordered to confirm placement. Implants 12 [place] triple-lumen 20 cm dialysis catheter Estimated Blood Loss 5 Urine Output 40 Complications No immediate complications Condition Stable Disposition No change [facility] Billing Surgery - Charge Forward: Surgery Billing
--- NOTE | 2023-03-08 14:40 | PM.IMPN ---
Progress Note: A&P Assessment and Plan (1) LAURI (acute kidney injury): Code(s): N17.9 - Acute kidney failure, unspecified Status: Acute (2) Hyperuricemia: Code(s): E79.0 - Hyperuricemia without signs of inflammatory arthritis and tophaceous disease Status: Acute (3) Acute on chronic renal failure: Code(s): N17.9 - Acute kidney failure, unspecified; N18.9 - Chronic kidney disease, unspecified Status: Acute Plan 67-year-old male patient who has a history of chronic kidney disease, hypertension, hyperlipidemia and gout.? The patient follows with Dr. Cronin.?? Over the last 2 weeks the patient has been and a lot of pain and he has had decreased oral intake and decreased UOP.?Upon admission was noted to have ? BUN 173 and creatinine 7.9.? His GFR 7.? Nephrology has been consulted. # acute?kidney injury on CKD3b+electrolyte imbalances -creatinine 8.4 today -nephrology consult appreciated Plan for temporary dialysis catheter today # anorexia+ severe protein calorie malnutrition -patient has no interest for p.o. intake.? He denies any nausea, change in taste -will encourage ensure -electrolyte imbalances may be secondary to poor p.o. intake # acute metabolic encephalopathy -patient's confusion may be secondary to hyponatremia+Hyperuricemia, continue to monitor -CT head negative for acute finding DVT prophylaxis:?SCDs Code status:??Full code Disposition:? pending improvement Time Spent With Patient Time with patient: 15 - 25 minutes Subjective Date/time seen: 03/08/23 14:40 Interval history: confused Continues to have hiccups Review of Systems Review of Systems: ROS unobtainable: Yes unobtainable due to medical condition and unobtainable due to mental status Exam Narrative: - GENERAL: Pleasant male. - EYES: EOMI. Anicteric. - HENT: Moist mucous membranes. - LUNGS: Clear to auscultation bilaterally, no wheezing, rhonchi, or rales. - CARDIOVASCULAR: Regular rate and rhythm. - ABDOMEN: Soft, non-tender and non-distended. No palpable masses. - EXTREMITIES: No edema. Peripheral pulses 2+. Non-tender. - NEUROLOGIC: No focal neurological deficits. CN II-XII grossly intact. - PSYCHIATRIC: confused - SKIN: No rashes or lesions. Warm. - LYMPH: No cervical lymphadenopathy. Objective Data Vital Signs Vital Signs: Vital Signs - 24 hr 03/07/23 16:00 03/07/23 16:00 03/07/23 18:00 Temperature 97.2 F L Pulse Rate 78 75 80 Respiratory Rate 18 Blood Pressure 105/59 L Pulse Oximetry 98 Oxygen Delivery 03/07/23 19:50 03/07/23 20:00 03/07/23 20:00 Temperature 97.7 F Pulse Rate 83 83 Respiratory Rate 18 Blood Pressure 103/64 Pulse Oximetry 99 99 Oxygen Delivery Room Air 03/07/23 19:40 03/07/23 22:00 03/07/23 23:22 Temperature 98.4 F Pulse Rate 83 84 95 Respiratory Rate 16 Blood Pressure 103/64 103/57 L Pulse Oximetry 97 Oxygen Delivery 03/08/23 00:00 03/08/23 02:00 03/08/23 04:00 Temperature 97.6 F Pulse Rate 82 77 91 Respiratory Rate 20 Blood Pressure 109/64 Pulse Oximetry 98 Oxygen Delivery 03/08/23 04:00 03/08/23 06:00 03/08/23 08:00 Temperature 97.6 F Pulse Rate 80 77 79 Respiratory Rate 18 Blood Pressure 102/55 L Pulse Oximetry 100 Oxygen Delivery 03/08/23 08:00 03/08/23 08:00 03/08/23 10:00 Temperature Pulse Rate 84 80 Respiratory Rate Blood Pressure Pulse Oximetry Oxygen Delivery Room Air 03/08/23 11:54 03/08/23 12:00 Temperature 97.1 F L Pulse Rate 78 79 Respiratory Rate 20 Blood Pressure 95/50 L Pulse Oximetry 100 Oxygen Delivery Intake/Output Intake/Output: Intake & Output 03/05/23 03/06/23 03/07/23 03/08/23 23:59 23:59 23:59 23:59 Intake Total 1999 1350 1375 Output Total 0 50 155 Balance 1999 1300 1220 Meds/Results Medications: Active Medications Generic Name Dose Route Start Last Admin Trade Name Freq PRN Reason St
--- NOTE | 2023-03-08 16:29 | PM.PNNEP ---
Progress Note: A&P Assessment and Plan (1) LAURI (acute kidney injury): Code(s): N17.9 - Acute kidney failure, unspecified Status: Acute Assessment and Plan: etiology is not clear evaluation to date: renal utrasound without any acute findings urine electrolytes slightly prerenal UA without evidence of infection related to recent medication changes versus uric acid?? trial of IVFs has not made much improvement in renal function given the severity of his renal dysfunction along with his hyperkalemia, metabolic acidosis and possible uremic symptoms, proceeding with COAT EXAMINER/dialysis today s/p temporary HD catheter place,emt plan HD today, tomorrow, and day after follow closely for potential renal recovery given the unclear nature of his LAURI/ARF, may need to consider a renal biopsy as well will hold his plavix and ASA follow platelet count follow-up on repeat labs and UOP (2) Chronic kidney disease, stage 3b: Code(s): N18.32 - Chronic kidney disease, stage 3b Status: Chronic Assessment and Plan: creatinine running ~ 2.0 - 2.4mg/dl since earlier this year felt to be secondary to hypertensive nephrosclerosis based on outpatient evaluation but unclear if gout/hyperuricemia playing a role (3) Hyperkalemia: Code(s): E87.5 - Hyperkalemia Status: Acute Assessment and Plan: due to LAURI along with Entresto use s/p medical management dialysis should help follow trend (4) Hypertension: Code(s): I10 - Essential (primary) hypertension Status: Acute Assessment and Plan: BP on the soft side holding BP medications including Entresto follow trend of hemodynamics (5) Congestive heart failure: Code(s): I50.9 - Heart failure, unspecified Status: Acute Assessment and Plan: unclear of specifics (no Echo here) however, on carvedilol and Entresto as an outpatient follow volume status closely in the context of LAURI/ARF (6) Gout, unspecified: Code(s): M10.9 - Gout, unspecified Status: Chronic Assessment and Plan: quite severe had been on uloric and allopurinol in the past with limited effectiveness had been planning outpatient infusion of kyrstexxa (azathioprine pretreatment started) unclear if this can be given inpatient and more importantly, in the context of LAURI/ARF (7) Anemia: Code(s): D64.9 - Anemia, unspecified Status: Acute Assessment and Plan: due to LAURI, CKD, and acute illness follow trend of H/H Epogen with HD Will continue to follow. Subjective Date/time seen: 03/08/23 16:29 Interval history: Follow-up for acute kidney injury/acute renal failure on chronic kidney disease. Due to worsening renal function, Surgery consulted for temporary HD catheter placement and patient tolerated this intervention fairly well; currently receiving dialysis treatment (seen on HD at ~ 4:15PM) and tolerating reasonably well also. Exam Narrative: General: WD/WN male in NAD Heart: normal S1 and S2; no rub Lungs: clear to auscultation Abdomen: soft, nontender, nondistended, positive bowel sounds Extremities: no cyanosis or clubbing; no edema; severe tophi in hands/feet Skin: warm and dry Objective Data Vital Signs Vital Signs: Vital Signs Temp Pulse Resp BP Pulse Ox O2 Del Method 03/08/23 16:29 86 118/99 H 03/08/23 16:20 86 101/60 03/08/23 16:00 95 103/55 L 03/08/23 15:40 102 H 92/54 L 03/08/23 15:20 79 93/52 L 03/08/23 15:00 79 102/54 L 03/08/23 14:40 79 98/51 L 03/08/23 14:28 79 97/53 L 03/08/23 14:20 98.0 F 78 16 100/57 L 96 03/08/23 12:00 79 03/08/23 11:54 97.1 F L 78 20 95/50 L 100 03/08/23 10:00 80 03/08/23 08:00 84 03/08/23 08:00 Room Air 03/08/23 08:00 97.6 F 79 18 102/55 L 100 03/08/23 06:00 77 03/08/23 04:00 80
--- NOTE | 2023-03-08 16:29 | P.PNNP_ITS ---
Progress Note: A&P Assessment and Plan (1) LAURI (acute kidney injury): Code(s): N17.9 - Acute kidney failure, unspecified Status: Acute Assessment and Plan: * etiology is not clear * evaluation to date: * renal utrasound without any acute findings * urine electrolytes slightly prerenal * UA without evidence of infection * related to recent medication changes versus uric acid?? 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 * s/p temporary HD catheter place,emt * plan HD today, tomorrow, and day after * follow closely for potential renal recovery * given the unclear nature of his LAURI/ARF, may need to consider a renal biopsy as well * will hold his plavix and ASA * follow platelet count * follow-up on repeat labs and UOP (2) Chronic kidney disease, stage 3b: Code(s): N18.32 - Chronic kidney disease, stage 3b Status: Chronic Assessment and Plan: * creatinine running ~ 2.0 - 2.4mg/dl since earlier this year * felt to be secondary to hypertensive nephrosclerosis based on outpatient evaluation but unclear if gout/hyperuricemia playing a role (3) Hyperkalemia: Code(s): E87.5 - Hyperkalemia Status: Acute Assessment and Plan: * due to LAURI along with Entresto use * s/p medical management * dialysis should help * follow trend (4) Hypertension: Code(s): I10 - Essential (primary) hypertension Status: Acute Assessment and Plan: * BP on the soft side * holding BP medications including Entresto * follow trend of hemodynamics (5) Congestive heart failure: Code(s): I50.9 - Heart failure, unspecified Status: Acute Assessment and Plan: * unclear of specifics (no Echo here) * however, on carvedilol and Entresto as an outpatient * follow volume status closely in the context of LAURI/ARF (6) Gout, unspecified: Code(s): M10.9 - Gout, unspecified Status: Chronic Assessment and Plan: * quite severe * had been on uloric and allopurinol in the past with limited effectiveness * had been planning outpatient infusion of kyrstexxa (azathioprine pretreatment started) * unclear if this can be given inpatient and more importantly, in the context of LAURI/ARF (7) Anemia: Code(s): D64.9 - Anemia, unspecified Status: Acute Assessment and Plan: * due to LAURI, CKD, and acute illness * follow trend of H/H * Epogen with HD Will continue to follow. Subjective Date/time seen: 03/08/23 16:29 Interval history: Follow-up for acute kidney injury/acute renal failure on chronic kidney disease. Due to worsening renal function, Surgery consulted for temporary HD catheter placement and patient tolerated this intervention fairly well; currently receiving dialysis treatment (seen on HD at ~ 4:15PM) and tolerating reasonably well also. Exam Narrative: General: WD/WN male in NAD Heart: normal S1 and S2; no rub Lungs: clear to auscultation Abdomen: soft, nontender, nondistended, positive bowel sounds Extremities: no cyanosis or clubbing; no edema; severe tophi in hands/feet Skin: warm and dry Objective Data Vital Signs Vital Signs: Vital Signs
[2023-03-08 17:02] LABS: Glucose Point of Care 73 mg/dl (65-105)
[2023-03-08] MEDS: traMADol HCL (*CRX) 50 MG TABLET PO (17:04)
[2023-03-08] MEDS: CENTRAL LINE FLUSH 10 ML IV PUSH (18:34)
[2023-03-08 21:44] LABS: Glucose Point of Care 114 mg/dl (65-105)
--- NOTE | 2023-03-08 23:02 | PC.NURSE ---
2105 PT RECEIVED PER WHEELCHAIR FROM [facility]
[2023-03-09] VITALS (18 sets, daily range): BP systolic 87–108; BP diastolic 49–72; PULSE 67–108; RESP 16–21; TEMP 36–37; O2SAT 96–100; BMI 24.7
[2023-03-09] MEDS: CENTRAL LINE FLUSH 10 ML IV PUSH ×5 (02:20→21:55)
[2023-03-09 05:26] LABS: Basophils Absolute Auto 0.1 K/mm3 (0.0-0.1); Basophils Percent Auto 0.5 % (0.2-1.2); Eosinophils Absolute Auto 0.1 K/mm3 (0-0.3); Eosinophils Percent Auto 0.3 % (0-4.4); Hematocrit 26.1 % (42.0-52.0); Hemoglobin 8.5 g/dL (14.0-18.0); Immature Granulocyte Absolute 0.13 K/mm3 (0.00-0.031); Immature Granulocyte Percent A 0.8 % (0-0.5); Lymphocytes Absolute Auto 0.24 K/mm3 (0.9-3.2); Lymphocytes Percent Auto 1.5 % (18.3-44.2); Mean Corpuscular HGB Conc 32.6 g/dl (32-36); Mean Corpuscular Hemoglobin 28.2 pg (26-34); Mean Corpuscular Volume 86.7 fl (80-100); Mean Platelet Volume 11.2 fl (7.4-10.4); Monocytes Absolute Auto 0.2 K/mm3 (0.1-0.6); Monocytes Percent Auto 1.4 % (2.6-8.5); Neutrophils Absolute Auto 15.6 K/mm3 (1.3-6.7); Neutrophils Percent Auto 95.5 % (45.5-73.1); Platelet Count Result 125 k/mm3 (150-375); Red Blood Count 3.01 M/mm3 (4.6-6.20); Red Cell Distribution Width 16.6 % (11.5-14.5); White Blood Count 16.3 K/mm3 (4.5-10.0)
[2023-03-09 05:40] LABS: Anion Gap 16 mmol/L (8-16); Calcium 8.1 mg/dL (8.4-10.2); Carbon Dioxide 19 mmol/L (22-30); Chloride 97 mmol/L (98-107); Estimated CRCL calculation 11 ml/min; Estimated Glomerular Filt Rate 8; Glucose 107 mg/dL (65-110); Potassium 4.7 mmol/L (3.4-5.0); Sodium 132 mmol/L (137-145); Uric Acid 10.5 mg/dL (3.5-8.5)
[2023-03-09 05:52] LABS: Anisocytosis 2+ (NORMAL); Poikilocytosis 3+ (NORMAL)
[2023-03-09 05:53] LABS: Acanthocytes 1+ (NORMAL); Burr Cells 3+ (NORMAL); Crenated RBC 2+ (NORMAL); Ovalocytes 1+ (NORMAL)
[2023-03-09 05:54] LABS: Schistocytes None Seen (NORMAL)
[2023-03-09 05:55] LABS: Blood Urea Nitrogen 131 mg/dL (9-20)
[2023-03-09 08:29] LABS: Glucose Point of Care 113 mg/dl (65-105)
[2023-03-09] MEDS: ATORVASTATIN 40 MG TABLET PO (08:37)
--- NOTE | 2023-03-09 11:11 | PM.IMPN ---
Progress Note: A&P Assessment and Plan (1) LAURI (acute kidney injury): Code(s): N17.9 - Acute kidney failure, unspecified Status: Acute (2) Hyperuricemia: Code(s): E79.0 - Hyperuricemia without signs of inflammatory arthritis and tophaceous disease Status: Acute (3) Acute on chronic renal failure: Code(s): N17.9 - Acute kidney failure, unspecified; N18.9 - Chronic kidney disease, unspecified Status: Acute Plan 67-year-old male patient who has a history of chronic kidney disease, hypertension, hyperlipidemia and gout.? The patient follows with Dr. Cronin.?? Over the last 2 weeks the patient has been and a lot of pain and he has had decreased oral intake and decreased UOP.?Upon admission was noted to have ? BUN 173 and creatinine 7.9.? His GFR 7.? Nephrology has been consulted. # acute?kidney injury on CKD3b+electrolyte imbalances -creatinine still quite elevated -nephrology consult appreciated -HD catheter placed, already had 2 cycles of HD # anorexia+ severe protein calorie malnutrition -patient has no interest for p.o. intake.? He denies any nausea, change in taste -will encourage ensure -electrolyte imbalances may be secondary to poor p.o. intake # acute metabolic encephalopathy -patient's confusion may be secondary to hyponatremia+Hyperuricemia, continue to monitor -CT head negative for acute finding DVT prophylaxis:?SCDs Code status:??Full code Disposition:? pending improvement Subjective Date/time seen: 03/09/23 11:11 Interval history: No overnight events noted. No chest pain or shortness of breath. No vomiting or diarrhea, admits to some nausea. No fevers or chills. Still a little confused and lethargic, quite swollen in joints, especially hands. Review of Systems Review of Systems: 12 point review of systems was assessed and was negative except as noted in the HPI Exam Narrative: General: No acute distress, a little somnolent, easily arousable, mild confusion per family at bedside HEENT: Atraumatic, normocephalic, mucous membranes moist CV: Regular rate and rhythm, S1, S2 Lungs: Clear to auscultation bilaterally, no rales or crackles noted, no wheezes, good air entry Abdomen: Soft, nontender, nondistended Extremities: Severely swollen hands with minimal erythema, TTP Skin: No rashes noted, no lesions or wounds seen Psych: Unable to assess Objective Data Vital Signs Vital Signs: Vital Signs - 24 hr 03/08/23 11:54 03/08/23 12:00 03/08/23 14:20 Temperature 97.1 F L 98.0 F Pulse Rate 78 79 78 Respiratory Rate 20 16 Blood Pressure 95/50 L 100/57 L Pulse Oximetry 100 96 Oxygen Delivery 03/08/23 14:28 03/08/23 14:40 03/08/23 15:00 Temperature Pulse Rate 79 79 79 Respiratory Rate Blood Pressure 97/53 L 98/51 L 102/54 L Pulse Oximetry Oxygen Delivery 03/08/23 15:20 03/08/23 15:40 03/08/23 16:00 Temperature Pulse Rate 79 102 H 95 Respiratory Rate Blood Pressure 93/52 L 92/54 L 103/55 L Pulse Oximetry Oxygen Delivery 03/08/23 16:20 03/08/23 16:29 03/08/23 16:39 Temperature 98.4 F Pulse Rate 86 86 92 Respiratory Rate 16 Blood Pressure 101/60 118/99 H 108/62 Pulse Oximetry 95 Oxygen Delivery 03/08/23 17:03 03/08/23 16:00 03/08/23 22:00 Temperature 97.9 F Pulse Rate 91 86 91 Respiratory Rate 18 Blood Pressure 107/47 L Pulse Oximetry 100 Oxygen Delivery 03/09/23 00:00 03/09/23 00:00 03/09/23 04:00 Temperature 98.4 F Pulse Rate 91 99 86 Respiratory Rate 20 Blood Pressure 100/55 L Pulse Oximetry 99 Oxygen Delivery 03/09/23 06:27 03/09/23 08:00 03/09/23 08:00 Temperature 98.0 F 97.9 F Pulse Rate 86 85 Respiratory Rate 21 H 18 Blood Pressure 100/49 L 103/50 L Pulse Oximetry 100 Oxygen Delivery Room Air Intake/Output Intake/Output: Intake & Output 03/06/23 03/07/23 03/08/23 03/09/23 23:59 23:59 23:59 23:59 Intake Total 2
[2023-03-09 11:57] LABS: Glucose Point of Care 109 mg/dl (65-105)
[2023-03-09] MEDS: traMADol HCL (*CRX) 50 MG TABLET PO ×2 (13:07→19:01)
--- NOTE | 2023-03-09 14:53 | PM.PNNEP ---
Progress Note: A&P Assessment and Plan (1) LAURI (acute kidney injury): Code(s): N17.9 - Acute kidney failure, unspecified Status: Acute Assessment and Plan: etiology is not clear evaluation to date: renal utrasound without any acute findings urine electrolytes slightly prerenal UA without evidence of infection related to recent medication changes versus uric acid?? 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 s/p temporary HD catheter placememt plan HD today and tomorrow follow closely for potential renal recovery given the unclear nature of his LAURI/ARF, may need to consider a renal biopsy as well will hold his plavix and ASA follow platelet count follow-up on repeat labs and UOP (2) Chronic kidney disease, stage 3b: Code(s): N18.32 - Chronic kidney disease, stage 3b Status: Chronic Assessment and Plan: creatinine running ~ 2.0 - 2.4mg/dl since earlier this year felt to be secondary to hypertensive nephrosclerosis based on outpatient evaluation but unclear if gout/hyperuricemia playing a role (3) Hyperkalemia: Code(s): E87.5 - Hyperkalemia Status: Acute Assessment and Plan: due to LAURI along with Entresto use s/p medical management dialysis should help follow trend (4) Hypertension: Code(s): I10 - Essential (primary) hypertension Status: Acute Assessment and Plan: BP on the soft side holding BP medications including Entresto follow trend of hemodynamics (5) Congestive heart failure: Code(s): I50.9 - Heart failure, unspecified Status: Acute Assessment and Plan: unclear of specifics (no Echo here) however, on carvedilol and Entresto as an outpatient follow volume status closely in the context of LAURI/ARF (6) Gout, unspecified: Code(s): M10.9 - Gout, unspecified Status: Chronic Assessment and Plan: quite severe had been on uloric and allopurinol in the past with limited effectiveness had been planning outpatient infusion of kyrstexxa (azathioprine pretreatment started) unclear if this can be given inpatient and more importantly, in the context of LAURI/ARF (7) Anemia: Code(s): D64.9 - Anemia, unspecified Status: Acute Assessment and Plan: due to LAURI, CKD, and acute illness follow trend of H/H Epogen with HD Will continue to follow. Subjective Date/time seen: 03/09/23 14:53 Interval history: Follow-up for acute kidney injury/acute renal failure on chronic kidney disease. Tolerated dialysis treatment yesterday and tolerating dialysis treatment today (seen on HD at ~ 2:45PM); difficult to say if he really feels better or not at this time; did make a bit more urine in the last 24 hours; no acute distress voiced at this time. Exam Narrative: General: WD/WN male in NAD Heart: normal S1 and S2; no rub Lungs: clear to auscultation Abdomen: soft, nontender, nondistended, positive bowel sounds Extremities: no cyanosis or clubbing; no edema; severe tophi in hands/feet Skin: warm and intact Objective Data Vital Signs Vital Signs: Vital Signs Temp Pulse Resp BP Pulse Ox O2 Del Method 03/09/23 12:00 98.4 F 82 18 94/72 L 100 03/09/23 08:00 Room Air 03/09/23 08:00 97.9 F 85 18 103/50 L 03/09/23 06:27 98.0 F 86 21 H 100/49 L 100 03/09/23 04:00 86 03/09/23 00:00 98.4 F 99 20 100/55 L 99 03/09/23 00:00 91 03/08/23 22:00 91 03/08/23 16:00 86 03/08/23 17:03 97.9 F 91 18 107/47 L 100 03/08/23 16:39 98.4 F 92 16 108/62 95 03/08/23 16:29 86 118/99 H 03/08/23 16:20 86 101/60 03/08/23 16:00 95 103/55 L 03/08/23 15:40 102 H 92/54 L 03/08/23 15:20 7
--- NOTE | 2023-03-09 14:53 | P.PNNP_ITS ---
Progress Note: A&P Assessment and Plan (1) LAURI (acute kidney injury): Code(s): N17.9 - Acute kidney failure, unspecified Status: Acute Assessment and Plan: * etiology is not clear * evaluation to date: * renal utrasound without any acute findings * urine electrolytes slightly prerenal * UA without evidence of infection * related to recent medication changes versus uric acid?? 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 * s/p temporary HD catheter placememt * plan HD today and tomorrow * follow closely for potential renal recovery * given the unclear nature of his LAURI/ARF, may need to consider a renal biopsy as well * will hold his plavix and ASA * follow platelet count * follow-up on repeat labs and UOP (2) Chronic kidney disease, stage 3b: Code(s): N18.32 - Chronic kidney disease, stage 3b Status: Chronic Assessment and Plan: * creatinine running ~ 2.0 - 2.4mg/dl since earlier this year * felt to be secondary to hypertensive nephrosclerosis based on outpatient evaluation but unclear if gout/hyperuricemia playing a role (3) Hyperkalemia: Code(s): E87.5 - Hyperkalemia Status: Acute Assessment and Plan: * due to LAURI along with Entresto use * s/p medical management * dialysis should help * follow trend (4) Hypertension: Code(s): I10 - Essential (primary) hypertension Status: Acute Assessment and Plan: * BP on the soft side * holding BP medications including Entresto * follow trend of hemodynamics (5) Congestive heart failure: Code(s): I50.9 - Heart failure, unspecified Status: Acute Assessment and Plan: * unclear of specifics (no Echo here) * however, on carvedilol and Entresto as an outpatient * follow volume status closely in the context of LAURI/ARF (6) Gout, unspecified: Code(s): M10.9 - Gout, unspecified Status: Chronic Assessment and Plan: * quite severe * had been on uloric and allopurinol in the past with limited effectiveness * had been planning outpatient infusion of kyrstexxa (azathioprine pretreatment started) * unclear if this can be given inpatient and more importantly, in the context of LAURI/ARF (7) Anemia: Code(s): D64.9 - Anemia, unspecified Status: Acute Assessment and Plan: * due to LAURI, CKD, and acute illness * follow trend of H/H * Epogen with HD Will continue to follow. Subjective Date/time seen: 03/09/23 14:53 Interval history: Follow-up for acute kidney injury/acute renal failure on chronic kidney disease. Tolerated dialysis treatment yesterday and tolerating dialysis treatment today (seen on HD at ~ 2:45PM); difficult to say if he really feels better or not at this time; did make a bit more urine in the last 24 hours; no acute distress voiced at this time. Exam Narrative: General: WD/WN male in NAD Heart: normal S1 and S2; no rub Lungs: clear to auscultation Abdomen: soft, nontender, nondistended, positive bowel sounds Extremities: no cyanosis or clubbing; no edema; severe tophi in hands/feet Skin: warm and intact Objective Data Vital Signs Vital Signs: Vital Signs
[2023-03-09] MEDS: EPOETIN ALFA-EPBX 10,000 UNITS/ML VIAL 10000 UNITS IV PUSH (16:00)
[2023-03-09 20:44] LABS: Glucose Point of Care 128 mg/dl (65-105)
[2023-03-10] VITALS (25 sets, daily range): BP systolic 81–107; BP diastolic 44–84; PULSE 74–101; RESP 18–21; TEMP 36–37; O2SAT 96–100
[2023-03-10 00:44] LABS: Glucose Point of Care 122 mg/dl (65-105)
[2023-03-10] MEDS: CENTRAL LINE FLUSH 10 ML IV PUSH ×4 (05:30→21:08)
[2023-03-10 05:40] LABS: Glucose Point of Care 107 mg/dl (65-105)
[2023-03-10 05:43] LABS: Uric Acid 8.3 mg/dL (3.5-8.5)
[2023-03-10] MEDS: ATORVASTATIN 40 MG TABLET PO (08:13)
[2023-03-10 08:40] LABS: Glucose Point of Care 122 mg/dl (65-105)
--- NOTE | 2023-03-10 10:11 | PM.IMPN ---
Progress Note: A&P Assessment and Plan (1) LAURI (acute kidney injury): Code(s): N17.9 - Acute kidney failure, unspecified Status: Acute (2) Hyperuricemia: Code(s): E79.0 - Hyperuricemia without signs of inflammatory arthritis and tophaceous disease Status: Acute (3) Acute on chronic renal failure: Code(s): N17.9 - Acute kidney failure, unspecified; N18.9 - Chronic kidney disease, unspecified Status: Acute Plan acute?kidney injury on CKD3b +electrolyte imbalances/uremia -nephrology consult appreciated, could be secondary to hypertensive nephrosclerosis versus gout/hyperuricemia -HD catheter placed, already had 2 cycles of HD, electrolytes improving anorexia + severe protein calorie malnutrition -patient has no interest for p.o. intake.?He denies any nausea, change in taste -will encourage ensure -electrolyte imbalances may be secondary to poor p.o. intake acute metabolic encephalopathy -patient's confusion may be secondary to hyponatremia+Hyperuricemia, continue to monitor -CT head negative for acute finding thrombocytopenia -hold aspirin, plavix -monitor platelets, cont to drop hiccups -thorazine trial DVT prophylaxis:?SCDs Code status:??Full code Disposition:? pending improvement Subjective Date/time seen: 03/10/23 10:11 Interval history: 67-year-old male with history of chronic kidney disease, ND, hyperlipidemia and hypertension is presenting with severe acute kidney injury superimposed on chronic kidney disease of unknown etiology requiring urgent dialysis. No overnight events noted. No chest pain or shortness of breath. No vomiting or diarrhea, nausea much improved. No fevers or chills. Much less confused today, c/o intractable hiccups. Review of Systems Review of Systems: 12 point review of systems was assessed and was negative except as noted in the HPI Exam Narrative: General: No acute distress, a little somnolent, easily arousable, mild confusion per family at bedside HEENT: Atraumatic, normocephalic, mucous membranes moist CV: Regular rate and rhythm, S1, S2 Lungs: Clear to auscultation bilaterally, no rales or crackles noted, no wheezes, good air entry Abdomen: Soft, nontender, nondistended Extremities: Severely swollen hands with minimal erythema, TTP Skin: No rashes noted, no lesions or wounds seen Psych: Normal affect, mood, judgment and insight intact Objective Data Vital Signs Vital Signs: Vital Signs - 24 hr 03/09/23 12:00 03/09/23 14:21 03/09/23 14:30 Temperature 98.4 F 98.0 F Pulse Rate 82 80 92 Respiratory Rate 18 16 Blood Pressure 94/72 L 97/52 L 98/52 L Pulse Oximetry 100 96 Oxygen Delivery 03/09/23 14:40 03/09/23 15:00 03/09/23 15:20 Temperature Pulse Rate 85 67 101 H Respiratory Rate Blood Pressure 91/54 L 91/58 L 91/54 L Pulse Oximetry Oxygen Delivery 03/09/23 15:40 03/09/23 16:00 03/09/23 16:20 Temperature Pulse Rate 99 89 91 Respiratory Rate Blood Pressure 87/60 L 89/65 L 90/66 L Pulse Oximetry Oxygen Delivery 03/09/23 16:40 03/09/23 17:00 03/09/23 17:07 Temperature 98.3 F Pulse Rate 83 85 82 Respiratory Rate 18 Blood Pressure 100/59 L 108/61 104/60 Pulse Oximetry 96 Oxygen Delivery 03/09/23 16:00 03/09/23 20:00 03/09/23 20:00 Temperature 98.6 F Pulse Rate 101 H 108 H 98 Respiratory Rate 21 H Blood Pressure 108/57 L Pulse Oximetry 100 Oxygen Delivery 03/09/23 20:00 03/10/23 00:00 03/10/23 02:50 Temperature 98.4 F Pulse Rate 91 74 Respiratory Rate 21 H Blood Pressure 98/58 L Pulse Oximetry 100 Oxygen Delivery Room Air 03/10/23 04:00 03/10/23 06:55 03/10/23 08:00 Temperature 98.6 F 98.0 F Pulse Rate 87 86 83 Respiratory Rate 21 H 18 Blood Pressure 97/54 L 100/72 Pulse Oximetry 100 100 Oxygen Delivery Intake/Output Intake/Output: Intake & Output 03/07/23 03/08/23 03/09/23 03/10/23
[2023-03-10 10:24] LABS: Basophils Absolute Auto 0.1 K/mm3 (0.0-0.1); Basophils Percent Auto 0.4 % (0.2-1.2); Eosinophils Absolute Auto 0.1 K/mm3 (0-0.3); Eosinophils Percent Auto 0.6 % (0-4.4); Hematocrit 24.1 % (42.0-52.0); Hemoglobin 7.8 g/dL (14.0-18.0); Immature Granulocyte Absolute 0.13 K/mm3 (0.00-0.031); Lymphocytes Absolute Auto 0.45 K/mm3 (0.9-3.2); Lymphocytes Percent Auto 3.4 % (18.3-44.2); Mean Corpuscular HGB Conc 32.4 g/dl (32-36); Mean Corpuscular Volume 86.4 fl (80-100); Mean Platelet Volume 12.1 fl (7.4-10.4); Monocytes Absolute Auto 0.3 K/mm3 (0.1-0.6); Monocytes Percent Auto 2.2 % (2.6-8.5); Neutrophils Absolute Auto 12.3 K/mm3 (1.3-6.7); Neutrophils Percent Auto 92.4 % (45.5-73.1); Platelet Count Result 114 k/mm3 (150-375); Red Blood Count 2.79 M/mm3 (4.6-6.20); Red Cell Distribution Width 16.4 % (11.5-14.5); White Blood Count 13.3 K/mm3 (4.5-10.0)
[2023-03-10 10:49] LABS: Alanine Aminotransferase 30 U/L (6-50); Albumin Level 2.2 g/dL (3.5-5.1); Alkaline Phosphatase 307 U/L (38-126); Anion Gap 13 mmol/L (8-16); Aspartate Amino Transferase 46 U/L (17-59); Bilirubin,Total 0.9 mg/dL (0.2-1.3); Blood Urea Nitrogen 99 mg/dL (9-20); Calcium 8.4 mg/dL (8.4-10.2); Carbon Dioxide 22 mmol/L (22-30); Chloride 98 mmol/L (98-107); Estimated CRCL calculation 15 ml/min; Estimated Glomerular Filt Rate 12; Glucose 103 mg/dL (65-110); Potassium 4.3 mmol/L (3.4-5.0); Sodium 133 mmol/L (137-145)
[2023-03-10 11:09] LABS: Burr Cells 2+ (NORMAL)
[2023-03-10 11:13] LABS: Platelet Estimate Adequate (Adequate)
[2023-03-10 11:14] LABS: Schistocytes None Seen (NORMAL)
[2023-03-10 11:29] LABS: Phosphorus 6.7 mg/dL (2.5-4.5)
[2023-03-10 12:12] LABS: Glucose Point of Care 150 mg/dl (65-105)
[2023-03-10] MEDS: traMADol HCL (*CRX) 50 MG TABLET PO ×2 (13:06→19:55)
--- NOTE | 2023-03-10 14:58 | PM.PNNEP ---
Progress Note: A&P Assessment and Plan (1) LAURI (acute kidney injury): Code(s): N17.9 - Acute kidney failure, unspecified Status: Acute Assessment and Plan: etiology is not clear evaluation to date: renal utrasound without any acute findings urine electrolytes slightly prerenal UA without evidence of infection related to recent medication changes versus uric acid?? 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 s/p temporary HD catheter placement (03/08/23) 3rd HD session today follow closely for potential renal recovery given the unclear nature of his LAURI/ARF, may need to consider a renal biopsy as well will hold his plavix and ASA follow platelet count (as this may be an issue with regard to biopsy) follow-up on repeat labs and UOP (2) Chronic kidney disease, stage 3b: Code(s): N18.32 - Chronic kidney disease, stage 3b Status: Chronic Assessment and Plan: creatinine running ~ 2.0 - 2.4mg/dl since earlier this year felt to be secondary to hypertensive nephrosclerosis based on outpatient evaluation but unclear if gout/hyperuricemia playing a role (3) Hyperkalemia: Code(s): E87.5 - Hyperkalemia Status: Acute Assessment and Plan: due to LAURI along with Entresto use s/p medical management dialysis helping to stablize follow trend (4) Hypertension: Code(s): I10 - Essential (primary) hypertension Status: Acute Assessment and Plan: BP on the soft side holding BP medications including Entresto follow trend of hemodynamics (5) Congestive heart failure: Code(s): I50.9 - Heart failure, unspecified Status: Acute Assessment and Plan: unclear of specifics (no Echo here) however, on carvedilol and Entresto as an outpatient follow volume status closely in the context of LAURI/ARF will check Echo (6) Gout, unspecified: Code(s): M10.9 - Gout, unspecified Status: Chronic Assessment and Plan: quite severe had been on uloric and allopurinol in the past had been planning outpatient infusion of kyrstexxa (azathioprine pretreatment started) interestingly, uric acid level improving with dialysis (7) Anemia: Code(s): D64.9 - Anemia, unspecified Status: Acute Assessment and Plan: due to LAURI, CKD, and acute illness follow trend of H/H PRBC transfusion per protocol Epogen with HD Will continue to follow. Subjective Date/time seen: 03/10/23 14:58 Interval history: Follow-up for acute kidney injury/acute renal failure on chronic kidney disease. Tolerating dialysis treatment today (seen on HD at 2:45PM) but having issues with on/off hypotension during treatment (despite no fluid removal) requiring fluid boluses and IV albumin; he states his nausea is a bit better but still having on/off hiccups; no other acute issues/events overnight or earlier this AM. Exam Narrative: General: WD/WN male in NAD Heart: normal S1 and S2; no rub Lungs: clear to auscultation Abdomen: soft, nontender, nondistended, positive bowel sounds Extremities: no cyanosis or clubbing; no edema; severe tophi in hands/feet Skin: no rash Objective Data Vital Signs Vital Signs: Vital Signs Temp Pulse Resp BP Pulse Ox O2 Del Method 03/10/23 12:00 98.3 F 86 18 103/46 L 100 03/10/23 12:04 93 03/10/23 08:00 86 03/10/23 08:13 Room Air 03/10/23 08:00 98.0 F 83 18 100/72 100 03/10/23 06:55 98.6 F 86 21 H 97/54 L 100 03/10/23 04:00 87 03/10/23 02:50 98.4 F 74 21 H 98/58 L 100 03/10/23 00:00 91 03/09/23 20:00 Room Air 03/09/23 20:00 98 03/09/23 20:00 98.6 F 108 H 21 H 108/57 L 100 03/09/23 17:07 98.3 F 82 18 104
--- NOTE | 2023-03-10 14:58 | P.PNNP_ITS ---
Progress Note: A&P Assessment and Plan (1) LAURI (acute kidney injury): Code(s): N17.9 - Acute kidney failure, unspecified Status: Acute Assessment and Plan: * etiology is not clear * evaluation to date: * renal utrasound without any acute findings * urine electrolytes slightly prerenal * UA without evidence of infection * related to recent medication changes versus uric acid?? * s/p trial of IVFs which did not improvement in renal function * given the severity of his renal dysfunction along with his hyperkalemia, metabolic acidosis and possible uremic symptoms, initiated on AURICULAR ACUPUNCTURIST/dialysis * s/p temporary HD catheter placement (03/08/23) * 3rd HD session today * follow closely for potential renal recovery * given the unclear nature of his LAURI/ARF, may need to consider a renal biopsy as well * will hold his plavix and ASA * follow platelet count (as this may be an issue with regard to biopsy) * follow-up on repeat labs and UOP (2) Chronic kidney disease, stage 3b: Code(s): N18.32 - Chronic kidney disease, stage 3b Status: Chronic Assessment and Plan: * creatinine running ~ 2.0 - 2.4mg/dl since earlier this year * felt to be secondary to hypertensive nephrosclerosis based on outpatient evaluation but unclear if gout/hyperuricemia playing a role (3) Hyperkalemia: Code(s): E87.5 - Hyperkalemia Status: Acute Assessment and Plan: * due to LAURI along with Entresto use * s/p medical management * dialysis helping to stablize * follow trend (4) Hypertension: Code(s): I10 - Essential (primary) hypertension Status: Acute Assessment and Plan: * BP on the soft side * holding BP medications including Entresto * follow trend of hemodynamics (5) Congestive heart failure: Code(s): I50.9 - Heart failure, unspecified Status: Acute Assessment and Plan: * unclear of specifics (no Echo here) * however, on carvedilol and Entresto as an outpatient * follow volume status closely in the context of LAURI/ARF * will check Echo (6) Gout, unspecified: Code(s): M10.9 - Gout, unspecified Status: Chronic Assessment and Plan: * quite severe * had been on uloric and allopurinol in the past * had been planning outpatient infusion of kyrstexxa (azathioprine pretreatment started) * interestingly, uric acid level improving with dialysis (7) Anemia: Code(s): D64.9 - Anemia, unspecified Status: Acute Assessment and Plan: * due to LAURI, CKD, and acute illness * follow trend of H/H * PRBC transfusion per protocol * Epogen with HD Will continue to follow. Subjective Date/time seen: 03/10/23 14:58 Interval history: Follow-up for acute kidney injury/acute renal failure on chronic kidney disease. Tolerating dialysis treatment today (seen on HD at 2:45PM) but having issues with on/off hypotension during treatment (despite no fluid removal) requiring fluid boluses and IV albumin; he states his nausea is a bit better but still having on/off hiccups; no other acute issues/events overnight or earlier this AM. Exam Narrative: General: WD/WN male in NAD Heart: normal S1 and S2; no rub Lungs: clear to auscultation Abdomen: soft, nontender, nondistended, positive bowel sounds Extremities: no cyanosis or clubbing; no edema; severe tophi in hands/feet Skin: no rash Objective Data Vital Signs Vital Signs:
[2023-03-10] MEDS: EPOETIN ALFA-EPBX 10,000 UNITS/ML VIAL 10000 UNITS IV PUSH (15:35)
[2023-03-10] MEDS: ALBUMIN HUMAN 25% 12.5 GM/50ML 50 ML IVPB (15:40)
--- NOTE | 2023-03-10 17:10 | PC.NURSE ---
Patient to dialysis at 03/10/23 1350.
[2023-03-10] MEDS: chlorproMAZINE HCL 25 MG TABLET PO (17:59)
[2023-03-10 21:37] LABS: Glucose Point of Care 126 mg/dl (65-105)
[2023-03-11] VITALS (17 sets, daily range): BP systolic 77–107; BP diastolic 46–68; PULSE 80–107; RESP 16–20; TEMP 36.2–38.5; O2SAT 100
--- NOTE | 2023-03-11 | ECHO_ITS ---
Patient Info Name: Addison Nina Age: 67 years : 1955 Gender: Male Ht: 71 in Wt: 182 lbs BSA: 2.04 m2 HR: 78 bpm BP: 96 / 50 mmHg Heart Rhythm: Sinus Rhythm Technical Quality: Good Exam Date: 03/11/2023 10:59 AM Exam Location: [facility] Card Pulmonary Patient Status: Inpatient Admit Date: 03/06/2023 Staff Ordering Physician: Nancy Cabezas MD Excavation Laborer: SHAHID Attending Provider: Kati Lombardo MD Exam Type: CA echo dop color flow w con Study Info Indications I50.9 - Heart failure, unspecified - CARDIOMYOPATHY BUT WITH RENAL FAILURE Contrast/Agitated Saline Contrast/Ag. Saline: Definity Amount: 2.00 ml Administered By: Penny Butler Existing IV Access: Yes IV Access Condition: patent with no signs of infiltration Summary 1. Definity contrast is used to improve visualization. 2. Left ventricular dilation with severe global systolic dysfunction low ejection fraction 15-20%. 3. Laminated left ventricular apical clot, chronic in appearance measures about 1.5 cm in diameter. 4. Left atrial dilation. 5. Sclerotic but not stenotic aortic valve. 6. Mild aortic and mitral regurgitation. Left Ventricle Left ventricular chamber dimension is severely enlarged. Left ventricular systolic function is severely reduced, estimated at 15-20%. The left ventricular diastolic function is grade II diastolic dysfunction. Right Ventricle Right ventricular chamber dimension is normal. Left Atria Left atrial chamber dimension is moderately enlarged. Right Atria Right atrial chamber dimension is mildly enlarged. Aortic Valve The aortic valve is trileaflet. There is mild aortic valve sclerosis. There is trace aortic valve regurgitation. Pulmonic Valve The pulmonic valve is not well visualized. Mitral Valve The mitral valve has normal leaflets. There is mild mitral valve regurgitation. Tricuspid Valve The tricuspid valve leaflets are normal. Pericardium/Pleural The pericardium appears normal. Aorta The aortic root size at the sinus of Valsalva is normal. Left Ventricular Outflow Tract Name Value Normal LVOT 2D LVOT Diameter 2.07 cm LVOT Doppler LVOT Peak Gradient 5 mmHg LVOT Mean Gradient 3 mmHg LVOT VTI 24.39 cm LVOT VTI/AV VTI Ratio 0.57 LVOT Stroke Volume 82.18 ml LVOT CO 17.26 l/min LVOT CI 8.45 L/min/m2 Pulmonic Valve Name Value Normal RVOT Doppler RVOT Peak Gradient 2 mmHg PV Doppler PV Peak Gradient 4 mmHg Mitral Valve Name Value Normal ----
--- NOTE | 2023-03-11 00:15 | ECG_ITS ---
Measurements Intervals [place] Rate: 99 P: 24 AK: 148 QRS: 1 QRSD: 146 T: -8 QT: 352 QTc: 452 Interpretive Statements SINUS OR ECTOPIC ATRIAL RHYTHM VENTRICULAR PREMATURE COMPLEX INTRAVENTRICULAR CONDUCTION DELAY CANNOT RULE OUT SEPTAL INFARCT, AGE INDETERMINATE CONSIDER INFERIOR INFARCT, AGE INDETERMINATE BORDERLINE ST-T WAVE ABNORMALITY- LATERAL LEADS ABNORMAL ECG COMPARED TO ECG 03/06/2023 13:20:01 NO SIGNIFICANT CHANGES Electronically Signed On 03-11-2023 6:41:52 CDT by Chris Beebe D.O.
[2023-03-11 00:46] LABS: Glucose Point of Care 116 mg/dl (65-105)
[2023-03-11] MEDS: ACETAMINOPHEN 500 MG TABLET 1000 MG PO ×2 (01:17→16:55)
[2023-03-11] MEDS: MIDODRINE HCL 10 MG TABLET PO ×2 (01:18→21:43)
[2023-03-11] MEDS: polyethylene glycoL 3350 17 GM POWD.PACK PO (01:18)
[2023-03-11] MEDS: MIDODRINE HCL 2.5 MG TABLET 5 MG PO ×2 (01:18→21:43)
[2023-03-11 01:47] LABS: Magnesium 2.3 mg/dL (1.6-2.3); Phosphorus 3.9 mg/dL (2.5-4.5)
--- NOTE | 2023-03-11 02:49 | PC.NURSE ---
Pt transferred to IMU Room 232-01. Report given to Elsi KAIS[facility].
--- NOTE | 2023-03-11 03:09 | PC.NURSE ---
This patient, Addison Nina, was received from [[phone] ] on 03/11/23 at 0245. Patient/family oriented to unit policies and routines
[2023-03-11] MEDS: CENTRAL LINE FLUSH 10 ML IV PUSH ×4 (05:53→22:40)
[2023-03-11 06:02] LABS: Basophils Percent Auto 0.3 % (0.2-1.2); Eosinophils Absolute Auto 0.1 K/mm3 (0-0.3); Eosinophils Percent Auto 0.7 % (0-4.4); Hematocrit 23.9 % (42.0-52.0); Hemoglobin 7.9 g/dL (14.0-18.0); Immature Granulocyte Absolute 0.11 K/mm3 (0.00-0.031); Immature Platelet Fraction Pct 5.7 % (0.9-11.2); Lymphocytes Absolute Auto 0.54 K/mm3 (0.9-3.2); Lymphocytes Percent Auto 4.7 % (18.3-44.2); Mean Corpuscular HGB Conc 33.1 g/dl (32-36); Mean Corpuscular Hemoglobin 28.7 pg (26-34); Mean Corpuscular Volume 86.9 fl (80-100); Mean Platelet Volume 12.2 fl (7.4-10.4); Monocytes Absolute Auto 0.5 K/mm3 (0.1-0.6); Monocytes Percent Auto 4.5 % (2.6-8.5); Neutrophils Absolute Auto 10.3 K/mm3 (1.3-6.7); Neutrophils Percent Auto 88.8 % (45.5-73.1); Platelet Count Result 98 k/mm3 (150-375); Red Blood Count 2.75 M/mm3 (4.6-6.20); Red Cell Distribution Width 16.5 % (11.5-14.5); White Blood Count 11.6 K/mm3 (4.5-10.0)
[2023-03-11 06:16] LABS: Alanine Aminotransferase 29 U/L (6-50); Albumin Level 2.2 g/dL (3.5-5.1); Alkaline Phosphatase 336 U/L (38-126); Anion Gap 8 mmol/L (8-16); Aspartate Amino Transferase 47 U/L (17-59); Bilirubin,Total 1.3 mg/dL (0.2-1.3); Blood Urea Nitrogen 67 mg/dL (9-20); Calcium 8.4 mg/dL (8.4-10.2); Carbon Dioxide 29 mmol/L (22-30); Chloride 98 mmol/L (98-107); Estimated CRCL calculation 20 ml/min; Estimated Glomerular Filt Rate 18; Glucose 107 mg/dL (65-110); Potassium 3.9 mmol/L (3.4-5.0); Sodium 135 mmol/L (137-145); Uric Acid 6.6 mg/dL (3.5-8.5)
[2023-03-11 08:19] LABS: Glucose Point of Care 103 mg/dl (65-105)
[2023-03-11] MEDS: ATORVASTATIN 40 MG TABLET PO (08:52)
[2023-03-11] MEDS: chlorproMAZINE HCL 25 MG TABLET PO (08:52)
[2023-03-11] MEDS: traMADol HCL (*CRX) 50 MG TABLET PO (08:52)
--- NOTE | 2023-03-11 09:06 | PM.IMPN ---
Progress Note: A&P Assessment and Plan (1) LAURI (acute kidney injury): Code(s): N17.9 - Acute kidney failure, unspecified Status: Acute (2) Hyperuricemia: Code(s): E79.0 - Hyperuricemia without signs of inflammatory arthritis and tophaceous disease Status: Acute (3) Acute on chronic renal failure: Code(s): N17.9 - Acute kidney failure, unspecified; N18.9 - Chronic kidney disease, unspecified Status: Acute Plan acute?kidney injury on CKD3b +electrolyte imbalances/uremia -nephrology consult appreciated, could be secondary to hypertensive nephrosclerosis versus gout/hyperuricemia -HD catheter placed, already had 2 cycles of HD, electrolytes improving -may need renal biopsy, underlying etiology still unclear -hyperkalemia resolving with dialysis anorexia + severe protein calorie malnutrition -patient has no interest for p.o. intake.?He denies any nausea, change in taste -will encourage ensure -electrolyte imbalances may be secondary to poor p.o. intake resolved-acute metabolic encephalopathy -patient's confusion may be secondary to hyponatremia + hyperuricemia, continue to monitor -CT head negative for acute finding thrombocytopenia -hold aspirin, plavix -monitor platelets, cont to drop, down to 98 hiccups -thorazine trial heart failure -f/u echo, cont coreg, hold entresto due to hypotension -cardiology consult pending gout -uncontrolled, dialysis is improving uric acid level as expected -cont pain control, was planning on kyrstexxa infusion, azathioprine pretreatment initiated outpatient -previously on uloric and allopurinol anemia -epogen with HD DVT prophylaxis:?SCDs Code status:??Full code Disposition:? pending improvement Subjective Date/time seen: 03/11/23 09:06 Interval history: 67-year-old male with history of chronic kidney disease, [place], hyperlipidemia and hypertension is presenting with severe acute kidney injury superimposed on chronic kidney disease of unknown etiology requiring urgent dialysis. No overnight events noted. No chest pain or shortness of breath. No vomiting or diarrhea, nausea much improved. No chills. Feeling much better. One fever overnight. Review of Systems Review of Systems: 12 point review of systems was assessed and was negative except as noted in the HPI Exam Narrative: General: No acute distress, a little somnolent, easily arousable, mild confusion per family at bedside HEENT: Atraumatic, normocephalic, mucous membranes moist CV: Regular rate and rhythm, S1, S2 Lungs: Clear to auscultation bilaterally, no rales or crackles noted, no wheezes, good air entry Abdomen: Soft, nontender, nondistended Extremities: Severely swollen hands with minimal erythema, TTP, severely swollen toes with scattered purpura Skin: No rashes noted, no lesions or wounds seen Psych: Normal affect, mood, judgment and insight intact Objective Data Vital Signs Vital Signs: Vital Signs - 24 hr 03/10/23 12:04 03/10/23 12:00 03/10/23 14:25 Temperature 98.3 F 98.0 F Pulse Rate 93 86 90 Respiratory Rate 18 18 Blood Pressure 103/46 L 105/53 L Pulse Oximetry 100 96 Oxygen Delivery 03/10/23 14:33 03/10/23 14:35 03/10/23 14:40 Temperature Pulse Rate 101 H 99 95 Respiratory Rate Blood Pressure 84/63 L 82/57 L 91/53 L Pulse Oximetry Oxygen Delivery 03/10/23 15:00 03/10/23 15:20 03/10/23 15:40 Temperature Pulse Rate 90 98 87 Respiratory Rate Blood Pressure 101/84 86/52 L 84/54 L Pulse Oximetry Oxygen Delivery 03/10/23 16:00 03/10/23 16:20 03/10/23 16:40 Temperature Pulse Rate 90 98 99 Respiratory Rate Blood Pressure 81/52 L 93/56 L 91/59 L Pulse Oximetry Oxygen Delivery 03/10/23 17:00 03/10/23 17:20 03/10/23 16:00 Temperature Pulse Rate 85 101 H 89 Respiratory Rate Blood Pressure 92/62 L 92/57 L Pulse Oximetry Oxygen Delivery 03/10/23 17:34
[2023-03-11] MEDS: PERFLUTREN LIPID MICROSPHERES 1.5 ML VIAL DILUTED TO 10 ML TOTAL VOLUME IV PUSH (11:20)
[2023-03-11] MEDS: azaTHIOprine 50 MG TABLET 150 MG PO (12:41)
[2023-03-11] MEDS: CLOPIDOGREL BISULFATE 75 MG TABLET PO (12:41)
[2023-03-11] MEDS: ASPIRIN 81 MG ENTERIC TABLET PO (12:41)
--- NOTE | 2023-03-11 14:28 | PM.PNNEP ---
Progress Note: A&P Assessment and Plan (1) LAURI (acute kidney injury): Code(s): N17.9 - Acute kidney failure, unspecified Status: Acute Assessment and Plan: etiology is not clear evaluation to date: renal utrasound without any acute findings urine electrolytes slightly prerenal UA without evidence of infection related to recent medication changes versus uric acid?? s/p trial of IVFs which did not improvement in renal function given the severity of his renal dysfunction along with his hyperkalemia, metabolic acidosis and possible uremic symptoms, initiated on BALLOON SANDER/dialysis s/p temporary HD catheter placement (03/08/23) 3rd HD session yesterday follow closely for potential renal recovery given the unclear nature of his LAURI/ARF, may need to consider a renal biopsy as well will hold his plavix and ASA follow platelet count (continues to drop) decline in UOP noted in the last 24 hours (due to severe hypotension?) tentatively plan HD tomorrow follow-up on repeat labs and UOP (2) Chronic kidney disease, stage 3b: Code(s): N18.32 - Chronic kidney disease, stage 3b Status: Chronic Assessment and Plan: creatinine running ~ 2.0 - 2.4mg/dl since earlier this year felt to be secondary to hypertensive nephrosclerosis based on outpatient evaluation but unclear if gout/hyperuricemia playing a role (3) Hyperkalemia: Code(s): E87.5 - Hyperkalemia Status: Acute Assessment and Plan: due to LAURI along with Entresto use s/p medical management dialysis helping to stablize follow trend (4) Hypertension: Code(s): I10 - Essential (primary) hypertension Status: Acute Assessment and Plan: BP on the soft side holding BP medications including Entresto follow trend of hemodynamics (5) Congestive heart failure: Code(s): I50.9 - Heart failure, unspecified Status: Acute Assessment and Plan: unclear of specifics ( however, on carvedilol and Entresto as an outpatient follow volume status closely in the context of LAURI/ARF Echo done and pending (6) Gout, unspecified: Code(s): M10.9 - Gout, unspecified Status: Chronic Assessment and Plan: quite severe had been on uloric and allopurinol in the past had been planning outpatient infusion of kyrstexxa (azathioprine pretreatment started for this) interestingly, uric acid level improving with dialysis (likely a transient event) (7) Thrombocytopenia: Code(s): D69.6 - Thrombocytopenia, unspecified Status: Acute Assessment and Plan: low on admission and continues to drop holding azathioprine and plavix HOWEVER, somehow was reordered and received today (suspect due to error in transfer orders) unable to do renal biopsy (if needed) until this is resolves/improves Hem/Onc consultation (8) Anemia: Code(s): D64.9 - Anemia, unspecified Status: Acute Assessment and Plan: due to LAURI, CKD, and acute illness follow trend of H/H PRBC transfusion per protocol Epogen with HD Will continue to follow. Subjective Date/time seen: 03/11/23 14:28 Interval history: Follow-up for acute kidney injury/acute renal failure on chronic kidney disease. Tolerated dialysis treatment yesterday but was complicated by significant hypotension requiring multiple fluid bolus as well as IV albumin; febrile overnight/early this AM as well; platelet count continues to drop as well; drop in urine output in the last 24 hours as well (due to previous hypotension?); states he feels a little better as nausea as well as hiccups appear to be doing better. Exam Narrative: General: WD/WN male in NAD Heart: normal S1 and S2; no rub Lungs: clear to auscultation Abdomen: soft, nontender, nondistended, positive bowel sounds Extremities: no cyanosis or clubbing; no edema; severe tophi in hands/feet Skin: warm and dry
--- NOTE | 2023-03-11 14:28 | P.PNNP_ITS ---
Progress Note: A&P Assessment and Plan (1) LAURI (acute kidney injury): Code(s): N17.9 - Acute kidney failure, unspecified Status: Acute Assessment and Plan: * etiology is not clear * evaluation to date: * renal utrasound without any acute findings * urine electrolytes slightly prerenal * UA without evidence of infection * related to recent medication changes versus uric acid?? * s/p trial of IVFs which did not improvement in renal function * given the severity of his renal dysfunction along with his hyperkalemia, metabolic acidosis and possible uremic symptoms, initiated on COUNSELOR AIDE/dialysis * s/p temporary HD catheter placement (03/08/23) * 3rd HD session yesterday * follow closely for potential renal recovery * given the unclear nature of his LAURI/ARF, may need to consider a renal biopsy as well * will hold his plavix and ASA * follow platelet count (continues to drop) * decline in UOP noted in the last 24 hours (due to severe hypotension?) * tentatively plan HD tomorrow * follow-up on repeat labs and UOP (2) Chronic kidney disease, stage 3b: Code(s): N18.32 - Chronic kidney disease, stage 3b Status: Chronic Assessment and Plan: * creatinine running ~ 2.0 - 2.4mg/dl since earlier this year * felt to be secondary to hypertensive nephrosclerosis based on outpatient evaluation but unclear if gout/hyperuricemia playing a role (3) Hyperkalemia: Code(s): E87.5 - Hyperkalemia Status: Acute Assessment and Plan: * due to LAURI along with Entresto use * s/p medical management * dialysis helping to stablize * follow trend (4) Hypertension: Code(s): I10 - Essential (primary) hypertension Status: Acute Assessment and Plan: * BP on the soft side * holding BP medications including Entresto * follow trend of hemodynamics (5) Congestive heart failure: Code(s): I50.9 - Heart failure, unspecified Status: Acute Assessment and Plan: * unclear of specifics ( * however, on carvedilol and Entresto as an outpatient * follow volume status closely in the context of LAURI/ARF * Echo done and pending (6) Gout, unspecified: Code(s): M10.9 - Gout, unspecified Status: Chronic Assessment and Plan: * quite severe * had been on uloric and allopurinol in the past * had been planning outpatient infusion of kyrstexxa (azathioprine pretreatment started for this) * interestingly, uric acid level improving with dialysis (likely a transient event) (7) Thrombocytopenia: Code(s): D69.6 - Thrombocytopenia, unspecified Status: Acute Assessment and Plan: * low on admission and continues to drop * holding azathioprine and plavix * HOWEVER, somehow was reordered and received today (suspect due to error in transfer orders) * unable to do renal biopsy (if needed) until this is resolves/improves * Hem/Onc consultation (8) Anemia: Code(s): D64.9 - Anemia, unspecified Status: Acute Assessment and Plan: * due to LAURI, CKD, and acute illness * follow trend of H/H * PRBC transfusion per protocol * Epogen with HD Will continue to follow. Subjective Date/time seen: 03/11/23 14:28 Interval history: Follow-up for acute kidney injury/acute renal failure on chronic kidney disease. Tolerated dialysis treatment yesterday but was complicated by significant hypotension requiring multiple fluid bolus as well as IV albumin; febrile overnight/early t
[2023-03-11] MEDS: oxyCODONE HCL (*CRX) 2.5 MG TAB IR PO (16:55)
--- NOTE | 2023-03-11 17:19 | PDONCCN ---
HPI - Date of Consult Date/Time: 03/11/23 17:19 Requesting Physician: Kati Lombardo MD Primary Care Provider: Irene Hdz, CELE - Consult Narrative Reason for consult: Anemia Narrative: Addison Nina is a 67 year old male with history of chronic kidney disease along with gout for 35 years duration of and hypertension and hyperlipidemia came into the hospital with mental status changes/confusion nausea vomiting and dehydration. He has been complaining of lot of gout pain in his joints. Patient was recently started on azathioprine but was not able to tolerated. Labs on admission showed hemoglobin of 10.6 now dropped down. Patient developed acute renal insufficiency. Creatinine was 7.9. He was started on dialysis with improvement in creatinine. He denies any bleeding including melena hematochezia. He has been complaining of tiredness and fatigue. Review of Systems - Review of Systems All systems reviewed & are unremarkable except as noted in HPI and bel - Neurologic Reports system reviewed and no additional complaints, except as documented, Reports hearing normal, Reports confusion (some confusion per his regarding history), Reports weakness, Denies syncope, Denies focal weakness [facility] Medical History: Medical History (Last Reviewed 03/08/23 @ 10:02 by SAMARA Jo) Anemia Chronic kidney disease, stage 3b Colon cancer screening Congestive heart failure Gout, unspecified History of heart attack 2018 no cardiac stents only treated with medication. Hyperlipidemia Hypertension Surgical History: Surgical History (Last Reviewed 03/08/23 @ 10:02 by SAMARA Jo) H/O arthroscopic knee surgery H/O cardiac catheterization H/O cataract extraction History of appendectomy History of bilateral knee replacement Family History: Family History (Last Reviewed 03/08/23 @ 10:02 by SAMARA Jo) Father Cerebrovascular accident Acute myocardial infarction Family history of heart disease in male family member before age 55 Mother Carcinoma of colon Family history of heart disease in male family member before age 55 Acute myocardial infarction Grandparent Cerebrovascular accident Family history of heart disease in male family member before age 55 Sibling Malignant neoplasm of prostate Other Family history of coronary artery disease - Social History Social History: Social History (Last Reviewed 03/08/23 @ 10:02 by SAMARA Jo) Alcohol Use: Alcohol intake: current Drinks per week: 2 Alcohol use details: DRINKS Substance Use: Substance use: never Substance use type: does not use Others: Spiritual care concerns: No Living Arrangements: Living arrangements: with family Smoking Status: Smoking status: Never smoker Second hand tobacco smoke exposure: No Social Determinants of Health: Has the Lack of Transportation Kept You From Medical Appointments or From Getting Medications?: No Within the Past 12 Months, Were You Worried Whether Your Food Would Run Out Before You Got Money to Buy More?: Often True What is Your Housing Situation Today?: I Have Housing Are You Worried That in the Next 2 Months, You May Not Have Your Own Housing to Live In?: No Do You Have Trouble Paying Your Heating Or Electricity Bill?: No Do You Have Trouble Paying For Medicines?: No Are You Currently Unemployed and Looking for Work?: No Highest Level of Education Completed: Master's Degree or Higher Do You Have Trouble With Childcare or the Care of a Family Member?: No Exam - Vital Signs Vital Signs - 24 hr 03/10/23 17:20 03/10/23 17:34 03/10/23 17:38 Temperature 36.7 C Pulse Rate 101 H 97 85 Respiratory Rate 18 Blood Pressure 92/57 L 96/74 L 93/61 L Pulse Oximetry 96 Oxygen Delivery 03/10/23 19:49 03/11/23 00:00 03/11/23 00:22 Temperature 36.7 C 38.5 C H 38.5
--- NOTE | 2023-03-11 17:32 | PM.CNCAR ---
Assessment and Plan Assessment and plan (1) Acute on chronic renal failure: Code(s): N17.9 - Acute kidney failure, unspecified; N18.9 - Chronic kidney disease, unspecified Status: Acute Assessment and Plan: Currently undergoing dialysis but they were unable to remove fluid due to hypotension. May need inotrope therapy or pressor support in order to actually remove fluid (2) Acute systolic (congestive) heart failure: Code(s): I50.21 - Acute systolic (congestive) heart failure Status: Acute Assessment and Plan: Inotropes as needed. Volume removal with dialysis. Unable to give Entresto or carvedilol at the present time due to hypotension. Resume/restart as able (3) CAD (coronary artery disease): Code(s): I25.10 - Atherosclerotic heart disease of [place] coronary artery without angina pectoris Status: Acute Assessment and Plan: Continue aspirin, statin. Discontinue clopidogrel. Will be starting heparin drip because of LV thrombus (4) Left ventricular thrombus: Code(s): I51.3 - Intracardiac thrombosis, not elsewhere classified Status: Acute Assessment and Plan: IV heparin per protocol (5) Hypotension: Code(s): I95.9 - Hypotension, unspecified Status: Acute Assessment and Plan: Likely secondary to underlying severe cardiomyopathy which is presumed ischemic in etiology. Likely needs pressor support and would likely benefit from transfer to tertiary facility History of Present Illness History of Present Illness Consult date/time: 03/11/23 17:32 Requesting physician: Lupe Paris DO Reason For Visit: acute on chronic renal failure,dehydration,hyponat Narrative: Reason for consultation: CHF Requesting provider: Dr. Paris Date of service 03/11/2023 History patient is a 67-year-old male patient of Dr. Jaramillo who has a history coronary disease. Had a myocardial infarction several years ago that was treated medically. Has history of chronic kidney disease also followed by Dr. Cronin. Catheterization not performed remotely reportedly due to patient's history of kidney failure and concern for dialysis at the time. He came to hospital because of nausea, vomiting, confusion. Creatinine was found to be nearly 8 with hyponatremia hyperkalemia. Nephrology was consulted and he has undergone dialysis but there has been difficulty with fluid removal due to hypotension. Echocardiogram was performed today showing a markedly reduced ejection fraction 15-20% with LV thrombus noted. He has had progressively worsening shortness of breath for several months and was started on Entresto back in October as an outpatient. He states that he feels a little better since initiating Entresto. He has had lower extremity swelling and has diffuse gouty arthritis. No syncope, presyncope, paroxysmal nocturnal dyspnea, orthopnea. No chest pain or palpitations. Review of Systems Review of Systems: All systems reviewed & are unremarkable except as noted in HPI and below Constitutional: Constitutional: Denies body ache(s) Eyes: Eyes: Denies blurry vision ENT: Reports Normal hearing present Cardiovascular: Cardiovascular: Denies chest pain, Reports pedal edema and Reports leg edema Respiratory: Respiratory: Denies chest congestion, Denies cough and Denies dyspnea Gastrointestinal: Gastrointestinal: Denies abdominal pain Genitourinary: Comments: Anuric at this point Musculoskeletal: Musculoskeletal: Reports arthralgias and Reports joint swelling Integumentary/Breasts: Skin/Breast: Reports rash and Reports wounds Neurologic: Denies Abnormal speech present Psychiatric: Psychiatric: Denies anxiety Endocrine: Endocrine: Denies excessive sweating Hematologic/Lymphatic: Hematologic/Lymphatic: Denies easy bleeding Allergic/Immunologic: Allergic/Immunologic: Denies GI upset with certain foods PMFSH Past Medical History Medical Histo
[2023-03-11 18:03] LABS: Lactate Dehydrogenase 149 U/L (120-246)
[2023-03-11 18:06] LABS: Iron 25 ug/dL (49-181)
[2023-03-11 18:15] LABS: Percent Iron Saturation 19 % (20-50)
[2023-03-11 18:27] LABS: Hematocrit 25.4 % (42.0-52.0); Hemoglobin 7.9 g/dL (14.0-18.0); Immature Platelet Fraction Pct 7.7 % (0.9-11.2); Mean Corpuscular HGB Conc 31.1 g/dl (32-36); Mean Corpuscular Hemoglobin 27.8 pg (26-34); Mean Corpuscular Volume 89.4 fl (80-100); Mean Platelet Volume 12.4 fl (7.4-10.4); Platelet Count Result 100 k/mm3 (150-375); Red Blood Count 2.84 M/mm3 (4.6-6.20); Red Cell Distribution Width 16.5 % (11.5-14.5); White Blood Count 9.3 K/mm3 (4.5-10.0)
[2023-03-11 19:10] LABS: Band Neutrophils Percent 4 % (0-6); Eosinophils Absolute Manual 0.09 K/mm3 (0.02-0.5); Eosinophils Percent Manual 1 % (0-4); Lymphocytes Absolute Manual 0.55 K/mm3 (1.1-4.5); Neutrophils Absolute Manual 8.64 K/mm3 (1.3-6.7); Neutrophils Percent Manual 89 % (46-73); Total Cells Counted 100
[2023-03-11 19:11] LABS: Platelet Estimate Decreased (Adequate); Schistocytes None Seen (NORMAL)
[2023-03-11 19:12] LABS: Anisocytosis 2+ (NORMAL); Hypochromasia 1+ (NORMAL)
[2023-03-11 19:35] LABS: Folic Acid 11.1 ng/mL (2.76->20); Vitamin B12 > 1000.0 pg/mL (239-931)
[2023-03-11 20:05] LABS: INR 1.6; Prothrombin Time 19.9 Seconds (11.1-14.7)
[2023-03-11 20:06] LABS: Partial Thromboplastin Time 33.2 SECONDS (22.3-36.8)
[2023-03-12] VITALS: BP 113/50; PULSE 105; PULSE 118; RESP 18; TEMP 37.2; O2SAT 93
[2023-03-12] MEDS: ACETAMINOPHEN 500 MG TABLET 1000 MG PO (00:26)
[2023-03-12 01:01] VITALS: PULSE 95
[2023-03-12 04:00] VITALS: BP 89/49; PULSE 89; PULSE 90; RESP 18; RESP 20; TEMP 36.3; O2SAT 95
--- NOTE | 2023-03-12 05:31 | PC.NURSE ---
This patient, Addison Nina, was transferred to [facility], ICU-10 on 03/12/23 at 0513. Personal belongings and home medication sent with patient. Report given to AWILDA Hudson at [facility]. Appropriate documentation sent with patient.
--- NOTE | 2023-03-12 08:51 | PM.TDS ---
Transfer Discharge Sum: Prov Provider Date of admission: 03/06/23 15:36 Primary care physician: Irene Hdz, PA-C Admitting clinician: Kati Lombardo MD Consults: 03/06/23 Consult to Physician Routine Comment: Consulting Provider: Aman Cronin Reason for consultation: LAURI Has provider been notified: Yes 03/08/23 Consult to Physician Routine Comment: Consulting Provider: Stephon Rangel Reason for consultation: placement of TEMPORARY dialysis catheter (plavix stopped yesterday) Has provider been notified: Yes 03/11/23 Consult to Physician Routine Comment: Called the exchange and notified them of consult Consulting Provider: Rob Torres call center specialist/MD group to consult: cardiology Reason for consultation: heart failure Has provider been notified: Yes Consult to Physician Routine Comment: Spoke with and notified him of consult Consulting Provider: Rob Laurent Reason for consultation: thrombocytopenia (unable to do renal biopsy) Has provider been notified: Yes DS: Admitting Diagnosis Discharge Date 03/11/23 Admitting Diagnosis decreased urination DS: Discharge Diagnosis Discharge Diagnosis (1) LAURI (acute kidney injury): Code(s): N17.9 - Acute kidney failure, unspecified Status: Acute (2) Hyperuricemia: Code(s): E79.0 - Hyperuricemia without signs of inflammatory arthritis and tophaceous disease Status: Acute (3) Acute on chronic renal failure: Code(s): N17.9 - Acute kidney failure, unspecified; N18.9 - Chronic kidney disease, unspecified Status: Acute Plan acute?kidney injury on CKD3b +electrolyte imbalances/uremia -nephrology consult appreciated, could be secondary to hypertensive nephrosclerosis versus gout/hyperuricemia -HD catheter placed, already had 2 cycles of HD, electrolytes improving -may need renal biopsy, underlying etiology still unclear -hyperkalemia resolving with dialysis anorexia + severe protein calorie malnutrition -patient has no interest for p.o. intake.?He denies any nausea, change in taste -will encourage ensure -electrolyte imbalances may be secondary to poor p.o. intake resolved-acute metabolic encephalopathy -patient's confusion may be secondary to hyponatremia + hyperuricemia, continue to monitor -CT head negative for acute finding thrombocytopenia -hold aspirin, plavix -monitor platelets, cont to drop, down to 98 hiccups -thorazine trial heart failure -f/u echo, cont coreg, hold entresto due to hypotension -cardiology consult pending gout -uncontrolled, dialysis is improving uric acid level as expected -cont pain control, was planning on kyrstexxa infusion, azathioprine pretreatment initiated outpatient -previously on uloric and allopurinol anemia -epogen with HD DVT prophylaxis:?SCDs Code status:??Full code Disposition:? pending improvement Transfer Discharge Sum: Med Medications Active and Home Medications: Home Medications Adults Multivitamin 1 tab-cap PO DAILY 01/29/22 [History Confirmed 03/06/23] aspirin 81 mg tablet,delayed release (Adult Aspirin Regimen) 81 mg PO DAILY 01/29/22 [History Confirmed 03/06/23] atorvastatin 40 mg tablet 40 mg PO DAILY 01/29/22 [History Confirmed 03/06/23] clopidogrel 75 mg tablet 75 mg PO DAILY 01/29/22 [History Confirmed 03/06/23] indomethacin 50 mg capsule 25 mg PO Q48H 01/29/22 [History Confirmed 03/06/23] nitroglycerin 0.4 mg sublingual tablet 0.4 mg sublingual PRN PRN Chest Pain 01/29/22 [History Confirmed 03/06/23] tramadol 50 mg tablet 50 mg PO BID PRN Pain 01/29/22 [History Confirmed 03/06/23] sodium bicarbonate 650 mg tablet 650 mg PO BID 11/30/22 [History Confirmed 03/06/23] carvedilol 6.25 mg tablet 6.25 mg PO Q12H 02/01/23 [History Confirmed 03/06/23] sacubitril 24 mg-valsartan 26 mg tablet (Entresto) 1 tablet PO BID 02/01/23 [History Confirmed 03/06/23] azathioprine 50 mg tablet 150 mg PO DAILY 03/06/23 [History Co
[2023-03-13 12:06] LABS: Hepatitis B Core Ab Total Nonreactive (Nonreactive)
--- NOTE | 2023-03-17 10:12 | PCCCNOTE ---
Voice mail received from [facility] at 1pm 03/16/23, states that specimen was ordered on 03/11/23 but has not been received. Request phone call back to [phone]. Called to Sona Shaffer, IMU manager environmental health and safety, advises to call laboratory. Phone call to laboratory to and transferred to mirta [facility] requesting a call back. Phone call to [facility] at , spoke with sales development representative Reilly Middleton, he states that the specimen has been received at 1915 last night and the VM must have been from earlier in the day.
[2023-03-17 14:15] LABS: Heparin Induced Platelet Antib Negative (Negative)
== END 2023-03-12 05:13 | disposition short-term general hospital (02) | DRG 682 ==
LOC: ANHED 12:49 → ANHIMU 17:37 → ANH2MED 03-08 21:16 → ANHIMU 03-11 03:07
PROVIDERS: Internal Medicine; Internal Medicine Cardiovascular Disease; Internal Medicine Hematology & Oncology; Internal Medicine Nephrology; Nurse Practitioner; Student in an Organized Health Care Education/Training Program; Admitting Provider Family Medicine; Emergency Provider General Practice; PCP Physician Assistant; Visit Provider Internal Medicine
DX: E43 Unspecified severe protein-calorie malnutrition; N17.9 Acute kidney failure, unspecified; G93.41 Metabolic encephalopathy; I50.21 Acute systolic (congestive) heart failure; E87.1 Hypo-osmolality and hyponatremia; I13.0 Hypertensive heart and chronic kidney disease with heart failure and stage 1 through stage 4 chronic kidney disease, or unspecified chronic kidney disease; I43 Cardiomyopathy in diseases classified elsewhere; M10.9 Gout, unspecified; D63.1 Anemia in chronic kidney disease; D69.6 Thrombocytopenia, unspecified; E86.0 Dehydration; E87.5 Hyperkalemia; E78.5 Hyperlipidemia, unspecified; I95.9 Hypotension, unspecified; I51.3 Intracardiac thrombosis, not elsewhere classified; I25.10 Atherosclerotic heart disease of native coronary artery without angina pectoris; I25.2 Old myocardial infarction; N18.32 Chronic kidney disease, stage 3b; R63.0 Anorexia; R06.6 Hiccough; Z20.822 Contact with and (suspected) exposure to COVID-19; Z68.23 Body mass index [BMI] 23.0-23.9, adult; Z79.82 Long term (current) use of aspirin; Z98.49 Cataract extraction status, unspecified eye; Z79.02 Long term (current) use of antithrombotics/antiplatelets; Z90.49 Acquired absence of other specified parts of digestive tract; Z96.653 Presence of artificial knee joint, bilateral; Z87.891 Personal history of nicotine dependence
CPT/HCPCS: 36415; 70450; 71045; 76775; 80048; 80053; 80074; 81001; 81050; 82570; 82607; 82728; 82746; 82948; 83540; 83550; 83605; 83615; 83690; 83735; 84100; 84133; 84156; 84300; 84443; 84550; 85025; 85027; 85055; 85610; 85730; 86022; 86704; 86706; 87086; 87340; 87636; 93005; 93922; 96361; 96374; 97162; 97165; 99285; A9270; C1752; C8929; G0257; J0612; J1644; J2405; J7030; P9047; Q5105; Q9957